=== PATIENT | male | born 1940 | race Caucasian/White ===

== ENCOUNTER 2017-03-29 09:36 | Emergency (ER) | payer OTHER ==
[~2017-03-29] VITALS: Ht 182.9 cm; Wt 93.0 kg
[~2017-03-29 09:36] MED LIST: DICL50 PO; GABA300C3 PO; PROS5TAB2 PO; SIMV20TA PO
[2017-03-29 09:39] VITALS: BP 141/70; PULSE 54; RESP 16; TEMP 97.6; O2SAT 96
[2017-03-29] MEDS ORDERED: WARF-23 PO (09:57)
[2017-03-29] MEDS ORDERED: OXYB5TAB10 PO (09:57)
[2017-03-29] MEDS ORDERED: SIMV20TA PO (09:57)
[2017-03-29] MEDS ORDERED: FINA5TAB2 PO (09:57)
[2017-03-29] MEDS ORDERED: METO50TA11 PO (09:57)
--- NOTE | 2017-03-29 10:07 | PD ---
HPI Chief Complaint: Fall Time Seen by Provider: 10:02 Travel History International Travel<30 days: No Contact w/Intl Traveler<30days: No Traveled to known affect area: No History of Present Illness HPI This 76-year-old male is brought after a fall. He was in his kitchen and his says he suddenly fell to the ground. He was wide awake when she first saw him. His glasses caused lacerations around his left thigh. He is having pain in his neck. He is on Coumadin because of atrial fibrillation. His says that he does fall fairly often. His says that his Coumadin level has been elevated recently and he was taken off them for several days last week. His does say that he falls quite often PFSH Past Medical History Hx Anticoagulant Therapy: Yes Arthritis: Yes Atrial Fibrillation: Yes Autoimmune Disease: No Anxiety: No Depression: No Heart Rhythm Problems: No Cancer: No Cardiovascular Problems: Yes (A. FIB. , HTN, CHOL) High Cholesterol: Yes Chest Pain: No Congestive Heart Failure: No Diabetes: No Diminished Hearing: No Endocrine: No Genitourinary: Yes (BPH) Immune Disorder: No Inguinal Hernia: Yes Musculoskeletal: Yes (BILATERAL ROTATOR CUFF REPAIR) Neurologic: No Psychiatric: No Reproductive: No Respiratory: No Influenza Vaccination: Yes ?: Not Past Surgical History Abdominal Surgery: Yes (APPY, LAURE. ING. HERNIA REP.) Appendectomy: Yes Cardiac Surgery: No Ear Surgery: No Endocrine Surgery: No Eye Surgery: No Genitourinary Surgery: No Gynecologic Surgery: No Joint Replacement: Yes (left hip) Oral Surgery: Yes (CHIN BONE REPAIR) Pacemaker: No Thoracic Surgery: No Other Surgery: Yes (HERNIA REPAIR) Social History Alcohol Use: No Tobacco Use: No Substance Use: No Allergies-Medications (Allergen,Severity, Reaction): Coded Allergies: No Known Allergies (Verified , 03/29/17) Reported Meds & Prescriptions Reported Meds & Active Scripts Active Metoprolol Succinate ER 24 HR (Metoprolol Succinate) 25 Mg Tab 25 Mg PO DAILY Reported Simvastatin 20 Mg Tab 20 Mg PO HS Finasteride 5 Mg Tab 5 Mg PO DAILY Do not crush. Ditropan (Oxybutynin Chloride) 5 Mg Tab 5 Mg PO Q12HR Metoprolol Succinate ER 24 HR (Metoprolol Succinate) 50 Mg Tab 50 Mg PO DAILY Warfarin 5 Mg Tab 5 Mg PO DAILY Review of Systems General / Constitutional: No: Fever, Chills Eyes: No: Diploplia, Blurred Vision HENT: No: Headaches Cardiovascular: No: Chest Pain or Discomfort, Palpitations Respiratory: No: Cough, Shortness of Breath Gastrointestinal: No: Vomiting Genitourinary: No: Urgency, Frequency Musculoskeletal: Positive: Myalgias, Pain Skin: No Rash, No Itching Neurologic: No: Change in Mentation Psychiatric: No: Anxiety Endocrine: No: Heat Intolerance, Cold Intolerance Physical Exam Narrative GENERAL: Well-developed male SKIN: Focused skin assessment warm/dry. HEAD: Atraumatic. Normocephalic. EYES: Pupils equal and round. No scleral icterus. No injection or drainage. There is a 4 cm laceration above the left eye. There is a superficial laceration below the eye and a small laceration on the left side of the nose. There is some swelling and tenderness of the nose ENT: No nasal bleeding or discharge. Mucous membranes pink and moist. NECK: Trachea midline. No JVD. CARDIOVASCULAR: Regular rate and rhythm. No murmur appreciated. RESPIRATORY: No accessory muscle use. Clear to auscultation. Breath sounds equal bilaterally. GASTROINTESTINAL: Abdomen soft, non-tender, nondistended. Hepatic and splenic margins not palpable. MUSCULOSKELETAL: No obvious deformities. No clubbing. No cyanosis. No edema. NEUROLOGICAL: Awake and alert. No obvious cranial nerve deficits. Motor grossly within normal limits. Normal speech. PSYCHIATRIC: Appropriate mood and affect; insight and judgment normal. Data Data Last Documented VS Vital Signs Date Time Temp Pulse Resp B/P Pulse Ox O2 Delivery O2 Flow Rate FiO2 03/29/17 11:00 57 18 162/90 97 03/29/17 09:39 97.6 Orders Electrocardiogram (03/29/17 10:02) Complete Blood Count With Diff (03/29/17 10:02) Basic Metabolic Panel (Bmp) (03/29/17 10:02) Prothrombin Time / Inr (Pt) (03/29/17 10:02) Act Partial Throm Time (Ptt) (03/29/17 10:02) Ct Brain W/O Iv Contrast(Rout) (03/29/17 10:02) Ct Cerv Spine W/O Contrast (03/29/17 10:02) Lidocai-Epi 1%-1:100,000 Inj (Xylocaine- (03/29/17 11:45) Labs Laboratory Tests Test 03/29/17 10:10 White Blood Count 6.5 TH/MM3 Red Blood Count 5.54 MIL/MM3 Hemoglobin 15.6 GM/DL Hematocrit 47.5 % Mean Corpuscular Volume 85.7 FL Mean Corpuscular Hemoglobin 28.0 PG Mean Corpuscular Hemoglobin 32.7 % Concent Red Cell Distribution Width 14.3 % Platelet Count 142 TH/MM3 Mean Platelet Volume 6.9 FL Neutrophils (%) (Auto) 73.7 % Lymphocytes (%) (Auto) 16.1 % Monocytes (%) (Auto) 7.1 % Eosinophils (%) (Auto) 1.8 % Basophils (%) (Auto) 1.3 % Neutrophils # (Auto) 4.8 TH/MM3 Lymphocytes # (Auto) 1.0 TH/MM3 Monocytes # (Auto) 0.5 TH/MM3 Eosinophils # (Auto) 0.1 TH/MM3 Basophils # (Auto) 0.1 TH/MM3 CBC Comment DIFF FINAL Differential Comment Prothrombin Time 22.1 SEC Prothromb Time International 1.9 RATIO Ratio Activated Partial 32.5 SEC Thromboplast Time Sodium Level 142 MEQ/L Potassium Level 4.8 MEQ/L Chloride Level 106 MEQ/L Carbon Dioxide Level 27.3 MEQ/L Anion Gap 9 MEQ/L Blood Urea Nitrogen 28 MG/DL Creatinine 1.40 MG/DL Estimat Glomerular Filtration 49 ML/MIN Rate Random Glucose 107 MG/DL Calcium Level 9.3 MG/DL MDM Medical Decision Making Medical Screen Exam Complete: Yes Emergency Medical Condition: Yes Medical Record Reviewed: Yes Differential Diagnosis Differential includes but injury, cervical spine fracture, electrolyte imbalance ,coagulopathy Narrative Course CT of the head is negative for injury. CT of the brain is negative. He has been observed on the monitor and his heart rate runs around 56. He should be on a lower dose of metoprolol as he has been falling and he is a bit bradycardic. I will prescribe 25 mg daily. To follow-up with his own medical doctor Diagnosis Primary Impression: Laceration of forehead Qualified Code: S01.81XA - Laceration of forehead, initial encounter Additional Impression: Cervical strain, acute Qualified Code: S16.1XXA - Cervical strain, acute, initial encounter Scripts Metoprolol Succinate ER 24 HR 25 Mg Tab25 Mg PO DAILY #30 TAB Ref 0 Prov:Laz Becker MD 03/29/17 Disposition: 01 DISCHARGE HOME Condition: Stable Laz Becker MD March 29, 2017 10:07
[2017-03-29 10:16] LABS: AUTOMATED NEUTROPHIL # 4.8 TH/MM3 (1.8-7.7); BASOPHIL # 0.1 TH/MM3 (0-0.2); BASOPHIL % 1.3 % (0.0-2.0); EOSINOPHIL # 0.1 TH/MM3 (0-0.4); EOSINOPHIL % 1.8 % (0.0-4.0); HEMATOCRIT 47.5 % (39.0-51.0); HEMO FLAGS DIFF FINAL; LYMPH % 16.1 % (9.0-44.0); MEAN CELL VOLUME 85.7 FL (80.0-100.0); MEAN CORPUSCULAR HGB CONC 32.7 % (32.0-36.0); MONO % 7.1 % (0.0-8.0); NEUT % 73.7 % (16.0-70.0); PLATELET COUNT 142 TH/MM3 (150-450); RED BLOOD COUNT 5.54 MIL/MM3 (4.50-5.90); RED CELL DISTRIBUTION WIDTH 14.3 % (11.6-17.2); WHITE BLOOD COUNT 6.5 TH/MM3 (4.0-11.0)
[2017-03-29 10:24] LABS: POTASSIUM 4.8 MEQ/L (3.5-5.1)
[2017-03-29 10:27] LABS: BICARBONATE 27.3 MEQ/L (21.0-32.0)
[2017-03-29 10:28] LABS: APTT (PATIENT) 32.5 SEC (24.3-30.1); INTERNATIONAL NORMALIZED RATIO 1.9 RATIO; PROTHROMBIN TIME - PATIENT 22.1 SEC (9.8-11.6)
[2017-03-29 11:00] VITALS: BP 162/90; PULSE 57; RESP 18; O2SAT 97
--- NOTE | 2017-03-29 11:28 | RADHPO ---
EXAM DATE/TIME: 03/29/2017 10:40 [facility] COMPARISON: No previous studies available for comparison. INDICATIONS : Trauma. Fall. Left forehead laceration. RADIATION DOSE: 67.40 CTDIvol (mGy) MEDICAL HISTORY : Cardiovascular disease. Hypertension. SURGICAL HISTORY : Appendectomy. ENCOUNTER: Initial ACUITY: 1 day PAIN SCALE: 4/10 LOCATION: Left frontal TECHNIQUE: Multiple contiguous axial images were obtained of the head. Using automated exposure control and adj ustment of the mA and/or kV according to patient size, radiation dose was kept as low as reasonably a chievable to obtain optimal diagnostic quality images. FINDINGS: CEREBRUM: The ventricles are normal for age. No evidence of midline shift, mass lesion, hemorrhage or acute in farction. No extra-axial fluid collections are seen. POSTERIOR FOSSA: The cerebellum and brainstem are intact. The 4th ventricle is midline. The cerebellopontine angle i s unremarkable. EXTRACRANIAL: The visualized portion of the orbits is intact. SKULL: The calvaria is intact. No evidence of skull fracture. CONCLUSION: 1. No acute findings intracranial. Small left frontal scalp hematoma. Ralph Howard MD on March 29, 2017 at 11:24 Board Certified Radiologist. This report was verified electronically.
--- NOTE | 2017-03-29 11:32 | RADHPO ---
EXAM DATE/TIME: 03/29/2017 10:40 [facility] COMPARISON: No previous studies available for comparison. INDICATIONS : Trauma. Fall. Left forehead laceration. RADIATION DOSE: 26.64 CTDIvol (mGy) MEDICAL HISTORY : Cardiovascular disease. Hypertension. SURGICAL HISTORY : Appendectomy. ENCOUNTER: Initial ACUITY: 1 day PAIN SCALE: 2/10 LOCATION: neck TECHNIQUE: Volumetric scanning of the cervical spine was performed. Multiplanar reconstructions in the sagittal, coronal and oblique axial planes were performed. Using automated exposure control and adjustment o f the mA and/or kV according to patient size, radiation dose was kept as low as reasonably achievable to obtain optimal diagnostic quality images. FINDINGS: There is no acute fracture or spondylolisthesis. There is no prevertebral soft tissue swelling. Moder ate degenerative disc disease present at C5-6-7 with mild canal, lateral recess and foraminal stenosi s bilaterally. CONCLUSION: 1. No acute findings. Moderate degenerative change in the lower cervical spine. Ralph Howard MD on March 29, 2017 at 11:26 Board Certified Radiologist. This report was verified electronically.
[2017-03-29] MEDS ORDERED: LIDOCAINE 1%/EPINEPHrine 1:100,000 SOLN 20 ML VIAL INFIL ONE (11:45)
[2017-03-29] MEDS ORDERED: METO25TA6 PO (11:46)
--- NOTE | 2017-03-29 12:29 | PD ---
Physical Exam Time Seen by Provider: 12:00 Narrative I was asked by Dr. Juárez to perform a laceration repair in this patient. Please see his note for further details. Data Data Last Documented VS Vital Signs Date Time Temp Pulse Resp B/P Pulse Ox O2 Delivery O2 Flow Rate FiO2 03/29/17 11:00 57 18 162/90 97 03/29/17 09:39 97.6 Orders Electrocardiogram (03/29/17 10:02) Complete Blood Count With Diff (03/29/17 10:02) Basic Metabolic Panel (Bmp) (03/29/17 10:02) Prothrombin Time / Inr (Pt) (03/29/17 10:02) Act Partial Throm Time (Ptt) (03/29/17 10:02) Ct Brain W/O Iv Contrast(Rout) (03/29/17 10:02) Ct Cerv Spine W/O Contrast (03/29/17 10:02) Lidocai-Epi 1%-1:100,000 Inj (Xylocaine- (03/29/17 11:45) Labs Laboratory Tests Test 03/29/17 10:10 White Blood Count 6.5 TH/MM3 Red Blood Count 5.54 MIL/MM3 Hemoglobin 15.6 GM/DL Hematocrit 47.5 % Mean Corpuscular Volume 85.7 FL Mean Corpuscular Hemoglobin 28.0 PG Mean Corpuscular Hemoglobin 32.7 % Concent Red Cell Distribution Width 14.3 % Platelet Count 142 TH/MM3 Mean Platelet Volume 6.9 FL Neutrophils (%) (Auto) 73.7 % Lymphocytes (%) (Auto) 16.1 % Monocytes (%) (Auto) 7.1 % Eosinophils (%) (Auto) 1.8 % Basophils (%) (Auto) 1.3 % Neutrophils # (Auto) 4.8 TH/MM3 Lymphocytes # (Auto) 1.0 TH/MM3 Monocytes # (Auto) 0.5 TH/MM3 Eosinophils # (Auto) 0.1 TH/MM3 Basophils # (Auto) 0.1 TH/MM3 CBC Comment DIFF FINAL Differential Comment Prothrombin Time 22.1 SEC Prothromb Time International 1.9 RATIO Ratio Activated Partial 32.5 SEC Thromboplast Time Sodium Level 142 MEQ/L Potassium Level 4.8 MEQ/L Chloride Level 106 MEQ/L Carbon Dioxide Level 27.3 MEQ/L Anion Gap 9 MEQ/L Blood Urea Nitrogen 28 MG/DL Creatinine 1.40 MG/DL Estimat Glomerular Filtration 49 ML/MIN Rate Random Glucose 107 MG/DL Calcium Level 9.3 MG/DL [facility] Medical Record Reviewed: Yes Supervised Visit with EMPERATRIZ: Yes Procedures Procedure Narrative LACERATION LOCATION: Left eyebrow LENGTH: 4 cm NUMBER OF STITCHES/JUVE: 7 simple interrupted REPAIR: The area of the laceration was prepped with Betadine and sterilely draped. The laceration was infiltrated with 1% lidocaine with epinephrine. The wound was copiously irrigated and explored without evidence of foreign body , tendon injury or neurovascular injury. The wound was closed using 6-0 Prolene. This was a single layer repair. A sterile dressing was applied. The patient was advised to keep the dressing clean and dry. Patient tolerated the procedure well. Diagnosis Primary Impression: Laceration of forehead Qualified Code: S01.81XA - Laceration of forehead, initial encounter Additional Impression: Cervical strain, acute Qualified Code: S16.1XXA - Cervical strain, acute, initial encounter Referrals: Cynthia Knox MD (PCP) 3 days Patient Instructions: General Instructions, Head Injury (ED), Facial Laceration (ED), Neck Pain (ED) Departure Forms: Tests/Procedures Scripts Metoprolol Succinate ER 24 HR 25 Mg Tab25 Mg PO DAILY #30 TAB Ref 0 Prov:Laz Becker MD 03/29/17 Disposition: 01 DISCHARGE HOME Condition: Stable Ellie Goins March 29, 2017 12:29
[2017-03-29 12:52] VITALS: BP 149/81
--- NOTE | 2017-03-29 15:21 | EKG ---
Date Performed: 03/29/2017 Time Performed: 10:04:14 PTAGE: 76 years EKG: Sinus bradycardia with PVC(s) Left anterior fascicular block Left ventricular hypertrophy L ateral T wave changes are probably due to ventricular hypertrophy Abnormal ECG COMPARED TO PRIOR ELEC TROCARDIOGRAM, Premature ventricular contractions are present. PREVIOUS TRACING : 06/05/2011 13.48 DOCTOR: Tunde Troy Interpretating Date/Time 03/29/2017 15:20:37
== END 2017-03-29 12:53 | disposition home or self-care (01) ==
LOC: PHED 09:36
DX: S01.81XA Laceration without foreign body of other part of head, initial encounter (principal); S16.1XXA Strain of muscle, fascia and tendon at neck level, initial encounter; I48.91 Unspecified atrial fibrillation; M19.90 Unspecified osteoarthritis, unspecified site; Z79.01 Long term (current) use of anticoagulants; Z79.899 Other long term (current) drug therapy; W18.30XA Fall on same level, unspecified, initial encounter; Z91.81 History of falling; Y92.000 Kitchen of unspecified non-institutional (private) residence as the place of occurrence of the external cause
CPT/HCPCS: 12013; 70450; 72125; 80048; 85025; 85610; 85730; 93005

== ENCOUNTER 2017-06-25 12:20 | Emergency (ER) | payer OTHER ==
[~2017-06-25] VITALS: Ht 182.9 cm; Wt 95.0 kg
[~2017-06-25 12:20] MED LIST changes: -DICL50 PO; +FINA5TAB2 PO; -GABA300C3 PO; +METO25TA6 PO; +METO50TA11 PO; +OXYB5TAB10 PO; -PROS5TAB2 PO; +WARF-23 PO
[2017-06-25] MEDS ORDERED: SODIUM CHLORIDE 0.9% FLUSH 10 ML FLUSH IVF PRN (12:30)
[2017-06-25 12:37] VITALS: BP 148/111; PULSE 73; RESP 18; TEMP 97.7; O2SAT 98
--- NOTE | 2017-06-25 12:38 | PD ---
HPI Chief Complaint: syncope Time Seen by Provider: 12:32 Travel History International Travel<30 days: No Contact w/Intl Traveler<30days: No History of Present Illness HPI Patient comes emergency Department after a reported witnessed syncope after finishing swimming while at the gym today. Patient denies any headache, chest pain, shortness of breath, lightheadedness, dizziness, loss or change in bowel or bladder, or change in vision prior to or post-syncopal episode. Patient states he was talking with his and when the next thing he new he woke up on the ground with paramedics looking at him. Patient has a history of this similar in March which his blood pressure medicines adjusted at that time. Patient sees Dr. Marin and is supposed to have a loop recorder placed this Sunday. Patient denies anything making it better or worse. Patient reports history of unknown arrhythmia. Patient's reports that she noticed her house about to collapse and she managed to catch him keep from hitting his head , calling for help, and reports patient was snoring. PFSH Past Medical History Hx Anticoagulant Therapy: Yes Arthritis: Yes Atrial Fibrillation: Yes Autoimmune Disease: No Anxiety: No Depression: No Heart Rhythm Problems: No Cancer: No Cardiovascular Problems: Yes (A. FIB. , HTN, CHOL) High Cholesterol: Yes Chest Pain: No Congestive Heart Failure: No Diabetes: No Diminished Hearing: No Endocrine: No Genitourinary: Yes (BPH) Immune Disorder: No Inguinal Hernia: Yes Musculoskeletal: Yes (BILATERAL ROTATOR CUFF REPAIR) Neurologic: No Psychiatric: No Reproductive: No Respiratory: No Past Surgical History Abdominal Surgery: Yes (APPY, LAURE. ING. HERNIA REP.) Appendectomy: Yes Cardiac Surgery: No Ear Surgery: No Endocrine Surgery: No Eye Surgery: No Genitourinary Surgery: No Gynecologic Surgery: No Joint Replacement: Yes (left hip) Oral Surgery: Yes (CHIN BONE REPAIR) Pacemaker: No Thoracic Surgery: No Other Surgery: Yes (HERNIA REPAIR) Social History Alcohol Use: No Tobacco Use: No Substance Use: No Allergies-Medications (Allergen,Severity, Reaction): Coded Allergies: No Known Allergies (Verified , 06/25/17) Reported Meds & Prescriptions Reported Meds & Active Scripts Active Metoprolol Succinate ER 24 HR (Metoprolol Succinate) 25 Mg Tab 25 Mg PO DAILY Reported Simvastatin 20 Mg Tab 20 Mg PO HS Finasteride 5 Mg Tab 5 Mg PO DAILY Do not crush. Ditropan (Oxybutynin Chloride) 5 Mg Tab 5 Mg PO Q12HR Warfarin 5 Mg Tab 5 Mg PO DAILY Review of Systems Except as stated in HPI: all other systems reviewed are Neg Physical Exam Narrative GENERAL: Well-developed, overly nourished, in no acute distress, and non-ill appearing. SKIN: Focused skin assessment warm and dry. HEAD: Atraumatic. Normocephalic. EYES: Pupils equal and round. EOMI. No scleral icterus. No injection or drainage. ENT: No nasal bleeding or discharge. Mucous membranes pink and moist. NECK: Trachea midline. No JVD. Supple. No nuclear rigidity. CARDIOVASCULAR: Regular rate and rhythm. No murmur appreciated. RESPIRATORY: No accessory muscle use. No respiratory distress. Clear to auscultation. Breath sounds equal bilaterally. MUSCULOSKELETAL: No obvious deformities. No clubbing. No cyanosis. No edema. Full range of motion. NEUROLOGICAL: Awake and alert. No obvious cranial nerve deficits. Motor grossly within normal limits. Normal speech. PSYCHIATRIC: Appropriate mood and affect; insight and judgment normal. Data Data Last Documented VS Vital Signs Date Time Temp Pulse Resp B/P Pulse Ox O2 Delivery O2 Flow Rate FiO2 06/25/17 14:34 76 20 158/100 97 Room Air 06/25/17 12:45 2 06/25/17 12:37 97.7 Orders Electrocardiogram (06/25/17 12:25) Basic Metabolic Panel (Bmp) (06/25/17 12:25) Complete Blood Count With Diff (06/25/17 12:25) Magnesium (Mg) (06/25/17 12:25) Ckmb (Isoenzyme) Profile (06/25/17 12:25) Troponin I (06/25/17 12:25) Act Partial Throm Time (Ptt) (06/25/17 12:25) Prothrombin Time / Inr (Pt) (06/25/17 12:25) Chest, Single Ap (06/25/17 12:25) Ct Brain W/O Iv Contrast(Rout) (06/25/17 12:25) Ecg Monitoring (06/25/17 12:25) Iv Access Insert/Monitor (06/25/17 12:25) Oximetry (06/25/17 12:25) Sodium Chloride 0.9% Flush (Ns Flush) (06/25/17 12:30) Orthostatic Vital Signs (06/25/17 12:25) Labs Laboratory Tests Test 06/25/17 12:20 White Blood Count 6.2 TH/MM3 Red Blood Count 5.41 MIL/MM3 Hemoglobin 15.7 GM/DL Hematocrit 46.4 % Mean Corpuscular Volume 85.6 FL Mean Corpuscular Hemoglobin 29.0 PG Mean Corpuscular Hemoglobin 33.8 % Concent Red Cell Distribution Width 14.8 % Platelet Count 130 TH/MM3 Mean Platelet Volume 7.8 FL Neutrophils (%) (Auto) 68.5 % Lymphocytes (%) (Auto) 21.7 % Monocytes (%) (Auto) 8.2 % Eosinophils (%) (Auto) 1.3 % Basophils (%) (Auto) 0.3 % Neutrophils # (Auto) 4.3 TH/MM3 Lymphocytes # (Auto) 1.4 TH/MM3 Monocytes # (Auto) 0.5 TH/MM3 Eosinophils # (Auto) 0.1 TH/MM3 Basophils # (Auto) 0.0 TH/MM3 CBC Comment DIFF FINAL Differential Comment Prothrombin Time 15.3 SEC Prothromb Time International 1.4 RATIO Ratio Activated Partial 27.8 SEC Thromboplast Time Sodium Level 141 MEQ/L Potassium Level 4.8 MEQ/L Chloride Level 109 MEQ/L Carbon Dioxide Level 21.5 MEQ/L Anion Gap 11 MEQ/L Blood Urea Nitrogen 23 MG/DL Creatinine 1.33 MG/DL Estimat Glomerular Filtration 52 ML/MIN Rate Random Glucose 114 MG/DL Calcium Level 9.0 MG/DL Magnesium Level 2.4 MG/DL Total Creatine Kinase 67 U/L Troponin I 0.04 NG/ML [facility] Medical Decision Making Medical Screen Exam Complete: Yes Emergency Medical Condition: Yes Interpretation(s) EKG reviewed by Dr. Rodrigues shows atrial fibrillation with ventricular is 77. No STEMI. CT of the head read by the radiologist shows: Mild symmetric ventriculomegaly is unchanged from most recent previous exam. No acute findings Chest x-ray read by Dr. Rodrigues shows no acute findings. Radiologist to over read. Differential Diagnosis Arrhythmia, electrolyte abnormality, orthostatic hypotension, CVA, volume depletion, other Narrative Course Patient presented with a syncopal event. The patient denied any symptoms of chest pain, SOB/difficulty breathing, palpitations or skipped heartbeats. The patient denied and headache. The patient denied any bloody or tarry stools. There was no evidence to suggest neurologic or cardiac etiology or GIB. There was no evidence clinically to suspect acute pulmonary embolism, cardiac dysrhythmia, or intracranial event or bleed. EKG and laboratory evaluation revealed no significant findings. The patient may be safely discharged and follow up as an outpatient. The patient was instructed to return if events occur more frequently or associated with chest pain, SOB/difficulty breathing, palpitations or skipped heartbeats or headache or blood in stool or tarry in stools. Patient in no obvious distress upon re-evaluation. All pertinent laboratory/ Radiology result(s) discussed with patient/family. Discussed patient with Dr. Rodrigues prior to discharge, who is in agreement with plan of care and disposition. Any questions/concerns in reference to patient diagnosis/condition discussed and clarified prior to patient's discharge. Reinforced sheer importance of close follow up with patient's primary physician or primary care clinic, it program engagement director, and neurologist. Instructed patient to return to ED immediately, if symptoms return/worsen. Pt showed understanding of above instructions. Further instructions and recommendations were detailed in discharge paperwork. Pt ambulated without difficulty out of ED at discharge. Physician Communication Physician Communication [id number] Gonzalez patient's it program engagement director who recommends outpatient follow-up with scheduled appointment on Sunday. No driving. [id number] Irwin, neurology on-call, recommends outpatient follow-up after his loop recorder placed by his it program engagement director. Diagnosis Primary Impression: Syncope Qualified Code: R55 - Syncope, unspecified syncope type Referrals: Lulu Irwin MD Patient Instructions: General Instructions, Syncope (ED) Additional Instructions: Follow-up with your it program engagement director this week as scheduled. Do not drive until cleared by your it program engagement director and neurologist. Follow up with neurology next week. Follow up with your primary care doctor this week. Return to the emergency department if symptoms get worse. Disposition: 01 DISCHARGE HOME Condition: Stable Amauri Marquez Jun 25, 2017 12:38
[2017-06-25 12:45] VITALS: BP_SYST 138; BP_SYST 149; BP_SYST 172; BP_DIAS 105; BP_DIAS 69; BP_DIAS 72; O2SAT 98
[2017-06-25 13:07] LABS: AUTOMATED NEUTROPHIL # 4.3 TH/MM3 (1.8-7.7); BASOPHIL % 0.3 % (0.0-2.0); EOSINOPHIL # 0.1 TH/MM3 (0-0.4); EOSINOPHIL % 1.3 % (0.0-4.0); HEMATOCRIT 46.4 % (39.0-51.0); HEMO FLAGS DIFF FINAL; LYMPH % 21.7 % (9.0-44.0); LYMPHOCYTE # 1.4 TH/MM3 (1.0-4.8); MEAN CELL VOLUME 85.6 FL (80.0-100.0); MEAN CORPUSCULAR HGB CONC 33.8 % (32.0-36.0); MONO % 8.2 % (0.0-8.0); NEUT % 68.5 % (16.0-70.0); PLATELET COUNT 130 TH/MM3 (150-450); RED BLOOD COUNT 5.41 MIL/MM3 (4.50-5.90); RED CELL DISTRIBUTION WIDTH 14.8 % (11.6-17.2); WHITE BLOOD COUNT 6.2 TH/MM3 (4.0-11.0)
[2017-06-25 13:22] LABS: APTT (PATIENT) 27.8 SEC (24.3-30.1); INTERNATIONAL NORMALIZED RATIO 1.4 RATIO; PROTHROMBIN TIME - PATIENT 15.3 SEC (9.8-11.6)
[2017-06-25 13:30] LABS: BICARBONATE 21.5 MEQ/L (21.0-32.0); MAGNESIUM 2.4 MG/DL (1.5-2.5); POTASSIUM 4.8 MEQ/L (3.5-5.1)
--- NOTE | 2017-06-25 13:39 | RADRPT ---
EXAM DATE/TIME: 06/25/2017 13:11 [facility] COMPARISON: CT BRAIN W/O CONTRAST, March 29, 2017, 10:40. INDICATIONS : Syncope. RADIATION DOSE: 37.35 CTDIvol (mGy) MEDICAL HISTORY : Cardiovascular disease. Hypertension. SURGICAL HISTORY : None. ENCOUNTER: Initial ACUITY: 1 day PAIN SCALE: 0/10 LOCATION: Bilateral cranial TECHNIQUE: Multiple contiguous axial images were obtained of the head. Using automated exposure control and adj ustment of the mA and/or kV according to patient size, radiation dose was kept as low as reasonably a chievable to obtain optimal diagnostic quality images. DICOM format image data is available electro nically for review and comparison. FINDINGS: There is stable mild symmetric ventriculomegaly. There is stable moderate hypodensity in the perivent ricular white matter. There is no evidence of intracranial mass or hemorrhage. There is nothing to mello ggest acute infarction. Extracranial structures are grossly benign and intact. CONCLUSION: Mild symmetric ventriculomegaly is unchanged from most recent previous exam. No acute findings Josiah Velasquez MD on June 25, 2017 at 13:34 Board Certified Radiologist. This report was verified electronically.
[2017-06-25 14:34] VITALS: BP 158/100; PULSE 76; RESP 20; O2SAT 97
--- NOTE | 2017-06-25 14:43 | RADRPT ---
EXAM DATE/TIME: 06/25/2017 12:50 [facility] COMPARISON: No previous studies available for comparison. INDICATIONS : Patient is short of breath. MEDICAL HISTORY : Cardiovascular disease. Hypertension. SURGICAL HISTORY : Appendectomy. ENCOUNTER: Initial ACUITY: 1 day PAIN SCORE: 0/10 LOCATION: Bilateral chest FINDINGS: A single view of the chest demonstrates the lungs to be symmetrically aerated without evidence of mas s, infiltrate or effusion. The cardiomediastinal contours are unremarkable. Osseous structures are intact. CONCLUSION: No acute disease. Bernardino Sigala MD FACR on June 25, 2017 at 14:41 Board Certified Radiologist. This report was verified electronically.
--- NOTE | 2017-06-26 15:52 | EKG ---
Date Performed: 06/25/2017 Time Performed: 12:28:40 PTAGE: 76 years EKG: ATRIAL FIBRILLATION MARKED LEFT AXIS DEVIATION LEFT BUNDLE BRANCH BLOCK ABNORMAL ECG PREVIOUS TRACING : 03/29/2017 10.04 DOCTOR: Eliceo Hernandez Interpretating Date/Time 06/26/2017 15:45:35
== END 2017-06-25 14:58 | disposition home or self-care (01) ==
LOC: NEPE 12:20
DX: R55 Syncope and collapse (principal); G93.89 Other specified disorders of brain; I48.91 Unspecified atrial fibrillation; I44.7 Left bundle-branch block, unspecified; R94.31 Abnormal electrocardiogram [ECG] [EKG]; I10 Essential (primary) hypertension; E78.00 Pure hypercholesterolemia, unspecified; N40.0 Benign prostatic hyperplasia without lower urinary tract symptoms; Z79.01 Long term (current) use of anticoagulants
CPT/HCPCS: 70450; 71010; 80048; 82550; 83735; 84484; 85025; 85610; 85730; 93005; 99285

== ENCOUNTER 2017-06-29 07:57 | Day surgery (SDC) | payer OTHER ==
[~2017-06-29 07:57] MED LIST changes: -METO50TA11 PO
[2017-06-29] MEDS ORDERED: MIDAZOLAM HCL 2 MG/2 ML VIAL ONE (08:40)
[2017-06-29] MEDS ORDERED: NS 1000 ML IV SCH (08:45)
[2017-06-29] MEDS ORDERED: POVIDONE IODINE 5% (ANTISEPSIS KIT) 4 APPLICATIONS EACH NARE SCH (08:45)
[2017-06-29] MEDS ORDERED: MUPIROCIN 2% OINT 1 APPLIC/GM SYR NASAL SCH (08:45)
[2017-06-29] MEDS ORDERED: ceFAZolin 2 GM PREMIX 50 ML IV SCH (08:45)
[2017-06-29] MEDS ORDERED: CHLORHEXIDINE GLUCONATE 2 % 1 PACK (2 CLOTHS) TOPICAL SCH (08:45)
--- NOTE | 2017-06-29 10:14 | MR ---
cc: EDUARD LAWSON MD DATE 06/29/2017 PERFORMING PHYSICIAN Eduard Lawson MD PROCEDURES PERFORMED 1. 15 minutes moderate IV sedation. 2. Loop recorder insertion. DESCRIPTION OF PROCEDURE After informed consent was obtained, 2 mg of Versed and 25 mcg of fentanyl was given for IV sedation. Next, a [employer] LINQ loop recorder was inserted subcutaneously in the left chest. The patient tolerated the procedure well without any apparent complications. Tachybrady pause atrial fibrillation detection was enabled, however, the patient was in atrial fibrillation at the time of the insertion which by my chart was a new formal diagnosis for the patient. He was on warfarin, however, this was held over the last several days. The patient tolerated the procedure well without any apparent complications. The serial number was [id number]. The initial R-wave was 0.25 mV. MD HAIDER Bettencourt/LUCERO /8:57 AM /10:04 AM
== END 2017-06-29 10:08 | disposition home or self-care (01) ==
LOC: HDOC 07:57 → HDIC 07:58 → HDOC 10:08
PROVIDERS: ATTEND Nuclear Medicine Nuclear Cardiology
DX: R55 Syncope and collapse (principal); I49.1 Atrial premature depolarization; I13.10 Hypertensive heart and chronic kidney disease without heart failure, with stage 1 through stage 4 chronic kidney disease, or unspecified chronic kidney disease; N18.3 Chronic kidney disease, stage 3 (moderate); E78.5 Hyperlipidemia, unspecified; D69.6 Thrombocytopenia, unspecified; I70.0 Atherosclerosis of aorta; Z87.891 Personal history of nicotine dependence; Z79.01 Long term (current) use of anticoagulants; Z79.899 Other long term (current) drug therapy
CPT/HCPCS: 33282; C1764; J0690; J2250; J3010

== ENCOUNTER 2017-12-31 12:18 | Emergency (ER) | payer OTHER ==
[~2017-12-31] VITALS: Ht 182.9 cm; Wt 98.0 kg
[~2017-12-31 12:18] MED LIST changes: -FINA5TAB2 PO; +METO1TAB42 PO; -METO25TA6 PO; -OXYB5TAB10 PO; +OXYB5TAB8 PO
[2017-12-31 12:22] VITALS: BP 114/68; PULSE 75; RESP 16; TEMP 98; O2SAT 94
[2017-12-31] MEDS ORDERED: WARF-20 PO (12:41)
[2017-12-31 12:45] VITALS: O2SAT 93
[2017-12-31] MEDS ORDERED: SODIUM CHLORIDE 0.9% FLUSH 10 ML FLUSH IV FLUSH PRN (12:45)
[2017-12-31 13:05] LABS: AUTOMATED NEUTROPHIL # 5.6 TH/MM3 (1.8-7.7); BASOPHIL % 0.6 % (0.0-2.0); EOSINOPHIL # 0.1 TH/MM3 (0-0.4); EOSINOPHIL % 1.2 % (0.0-4.0); LYMPH % 8.9 % (9.0-44.0); LYMPHOCYTE # 0.6 TH/MM3 (1.0-4.8); MEAN CELL VOLUME 84.1 FL (80.0-100.0); MEAN CORPUSCULAR HEMOGLOBIN 26.9 PG (27.0-34.0); MEAN PLATELET VOLUME 7.4 FL (7.0-11.0); MONO % 8.9 % (0.0-8.0); MONOCYTE # 0.6 TH/MM3 (0-0.9); NEUT % 80.4 % (16.0-70.0); PLATELET COUNT 132 TH/MM3 (150-450); RED BLOOD COUNT 5.59 MIL/MM3 (4.50-5.90); RED CELL DISTRIBUTION WIDTH 14.9 % (11.6-17.2); WHITE BLOOD COUNT 6.9 TH/MM3 (4.0-11.0)
--- NOTE | 2017-12-31 13:25 | PD ---
HPI . MENTAL STATUS Chief Complaint: Altered Mental Status Time Seen by Provider: 12:34 Travel History International Travel<30 days: No Contact w/Intl Traveler<30days: No Traveled to known affect area: No History of Present Illness HPI This patient brought in by squad with a chief complaint of altered mental status. She states that she dropped him off this morning to play horse shoes with his friends. When she went to pick him up, he just stood there looking at her as if he did not understand that she wanted him to get into the car. The states that it took her and his friend several minutes to get him to get into the car. She states he now seems normal. She reports one previous similar episode in the summertime. He was subsequently evaluated by both a neurologist and a [employer] and the etiology of the symptoms was not determined. However, he was told not to drive. The symptoms were very brief and have now completely resolved. There were no noted modifying factors. PFSH Past Medical History Hx Anticoagulant Therapy: Yes (WAS ON CUMIDIN ) Arthritis: Yes Atrial Fibrillation: Yes Autoimmune Disease: No Anxiety: No Depression: No Heart Rhythm Problems: No Cancer: No Cardiovascular Problems: Yes (A. FIB. , HTN, CHOL) High Cholesterol: Yes Chest Pain: No Congestive Heart Failure: No Diabetes: No Diminished Hearing: No Endocrine: No Genitourinary: Yes (BPH) Hypertension: Yes Immune Disorder: No Inguinal Hernia: Yes Musculoskeletal: Yes (BILATERAL ROTATOR CUFF REPAIR) Neurologic: No Psychiatric: No Reproductive: No Respiratory: Yes (COPD) Tetanus Vaccination: Unknown Influenza Vaccination: Yes ?: Not Past Surgical History Abdominal Surgery: Yes (APPY, LAURE. ING. HERNIA REP.) Appendectomy: Yes Cardiac Surgery: Yes (Loop recorder) Ear Surgery: No Endocrine Surgery: No Eye Surgery: No Genitourinary Surgery: No Gynecologic Surgery: No Joint Replacement: Yes (left hip) Oral Surgery: Yes (CHIN BONE REPAIR) Pacemaker: No Thoracic Surgery: No Other Surgery: Yes (HERNIA REPAIR) Social History Alcohol Use: No Tobacco Use: No Substance Use: No Allergies-Medications (Allergen,Severity, Reaction): Coded Allergies: No Known Allergies (Verified Adverse Reaction, Unknown, 12/31/17) Reported Meds & Prescriptions Reported Meds & Active Scripts Active Metoprolol Succinate ER 24 HR (Metoprolol Succinate) 25 Mg Tab 25 Mg PO DAILY Reported Warfarin 4 Mg Tab 4 Mg PO DAILY Simvastatin 20 Mg Tab 20 Mg PO HS Ditropan (Oxybutynin Chloride) 5 Mg Tab 5 Mg PO Q12HR Review of Systems Except as stated in HPI: all other systems reviewed are Neg Physical Exam Narrative GENERAL: Awake and alert and fully oriented at this time. SKIN: warm/dry. Good color and turgor. HEAD: Normocephalic. Atraumatic. EYES: Pupils equal and round. No scleral icterus. No injection or drainage. ENT: No nasal bleeding or discharge. Mucous membranes pink and moist. NECK: Trachea midline. Full range of motion without pain.. CARDIOVASCULAR: Regular rate and rhythm. Heart sounds normal. RESPIRATORY: No accessory muscle use. Clear to auscultation. Breath sounds equal bilaterally. GASTROINTESTINAL: Abdomen soft. Nontender. Bowel sounds present. Nondistended. MUSCULOSKELETAL: No obvious deformities. NEUROLOGICAL: Awake and alert. No obvious cranial nerve deficits. Motor grossly within normal limits. Normal speech. [id number] exam is intact. Pronator drift is negative. PSYCHIATRIC: Appropriate mood and affect; insight and judgment normal. Data Data Last Documented VS Vital Signs Date Time Temp Pulse Resp B/P (MAP) Pulse Ox O2 Delivery O2 Flow Rate FiO2 12/31/17 12:45 93 12/31/17 12:22 98.0 75 16 114/68 (83) Orders Orders Electrocardiogram (12/31/17 12:43) Basic Metabolic Panel (Bmp) (12/31/17 12:43) Complete Blood Count With Diff (12/31/17 12:43) Urinalysis - C+S If Indicated (12/31/17 12:43) Ct Brain W/O Iv Contrast(Rout) (12/31/17 12:43) Ecg Monitoring (12/31/17 12:43) Iv Access Insert/Monitor (12/31/17 12:43) Oximetry (12/31/17 12:43) Sodium Chloride 0.9% Flush (Ns Flush) (12/31/17 12:45) Cath For Specimen (12/31/17 14:05) Labs Laboratory Tests Test 12/31/17 12:48 12/31/17 13:22 12/31/17 14:24 White Blood Count 6.9 TH/MM3 Red Blood Count 5.59 MIL/MM3 Hemoglobin 15.0 GM/DL Hematocrit 47.0 % Mean Corpuscular Volume 84.1 FL Mean Corpuscular Hemoglobin 26.9 PG Mean Corpuscular Hemoglobin Concent 32.0 % Red Cell Distribution Width 14.9 % Platelet Count 132 TH/MM3 Mean Platelet Volume 7.4 FL Neutrophils (%) (Auto) 80.4 % Lymphocytes (%) (Auto) 8.9 % Monocytes (%) (Auto) 8.9 % Eosinophils (%) (Auto) 1.2 % Basophils (%) (Auto) 0.6 % Neutrophils # (Auto) 5.6 TH/MM3 Lymphocytes # (Auto) 0.6 TH/MM3 Monocytes # (Auto) 0.6 TH/MM3 Eosinophils # (Auto) 0.1 TH/MM3 Basophils # (Auto) 0.0 TH/MM3 CBC Comment DIFF FINAL Differential Comment Blood Urea Nitrogen 30 MG/DL Creatinine 1.50 MG/DL Random Glucose 92 MG/DL Calcium Level 9.1 MG/DL Sodium Level 135 MEQ/L Potassium Level 4.9 MEQ/L Chloride Level 103 MEQ/L Carbon Dioxide Level 25.1 MEQ/L Anion Gap 7 MEQ/L Estimat Glomerular Filtration Rate 45 ML/MIN Urine Collection Type CLEAN CATCH Urine Color YELLOW Urine Turbidity SLIGHT Urine pH 6.0 Urine Specific [place] 1.020 Urine Protein TRACE mg/dL Urine Glucose (UA) NEG mg/dL Urine Ketones TRACE mg/dL Urine Occult Blood MOD Urine Nitrite NEG Urine Bilirubin NEG Urine Leukocyte Esterase NEG Urine RBC 4-9 /hpf Urine WBC 0-2 /hpf Urine Squamous Epithelial Cells 0-5 /hpf Urine Amorphous Sediment FEW Microscopic Urinalysis Comment CULT NOT INDICATED Urine Collection Time 1424 MDM Medical Decision Making Medical Screen Exam Complete: Yes Emergency Medical Condition: Yes Medical Record Reviewed: Yes (patient was seen here in June after a syncopal episode which occurred after swimming. His evaluation was negative and he was discharged home.) Interpretation(s) EKG shows an atrial fibrillation rhythm with a controlled ventricular response of 80. No acute ischemic changes noted. Differential Diagnosis Differential diagnosis of altered mental status includes but is not limited to infection, electrolyte abnormality, neurological event, intoxication Narrative Course This patient presents with a brief episode of altered mental status. He has now returned to normal. CBC Diagram 12/31/17 12:48 BMP Diagram 12/31/17 13:22 Calcium Level 9.1 This BUN and creatinine is mildly elevated from previous. I will encourage the patient to drink more fluids. UA is negative for infection. Last Impressions Head CT 12/31/17 1243 Impressions: Service Date/Time: Sunday, December 31, 2017 13:40 - CONCLUSION: 1. No acute intracranial abnormality identified. 2. Stable compared to a previous study dated 06/25/17. Carlo Sigala MD The history, exam, diagnostic testing, and current condition do not suggest any significant pathology to warrant further testing, continued ED treatment, admission, or surgical evaluation at this point. No EMC was found. The patient 's condition is stable and appropriate for discharge. Diagnosis Primary Impression: Altered mental status Qualified Codes: R40.4 - Transient alteration of awareness Additional Impression: Dehydration Patient Instructions: Dehydration (DC), General Instructions Additional Instructions: Increase fluid intake Disposition: 01 DISCHARGE HOME Condition: Stable Radha Riojas MD Dec 31, 2017 13:25
[2017-12-31 13:38] LABS: CALCIUM 9.1 MG/DL (8.5-10.1)
[2017-12-31 13:39] LABS: BICARBONATE 25.1 MEQ/L (21.0-32.0)
[2017-12-31 13:42] LABS: CREATININE 1.5 MG/DL (0.60-1.30)
--- NOTE | 2017-12-31 13:52 | RADRPT ---
EXAM DATE/TIME: 12/31/2017 13:40 [facility] COMPARISON: CT BRAIN W/O CONTRAST, June 25, 2017, 13:11. INDICATIONS : Episode of confusion. RADIATION DOSE: 62.74 CTDIvol (mGy) MEDICAL HISTORY : Cardiovascular disease. Hypertension. SURGICAL HISTORY : Loop recorder. ENCOUNTER: Initial ACUITY: 1 day PAIN SCALE: 0/10 LOCATION: cranial TECHNIQUE: Multiple contiguous axial images were obtained of the head. Using automated exposure control and adj ustment of the mA and/or kV according to patient size, radiation dose was kept as low as reasonably a chievable to obtain optimal diagnostic quality images. DICOM format image data is available electro nically for review and comparison. FINDINGS: CEREBRUM: The ventricles are normal for age. No evidence of midline shift, mass lesion, hemorrhage or acute in farction. No extra-axial fluid collections are seen. POSTERIOR FOSSA: The cerebellum and brainstem are intact. The 4th ventricle is midline. The cerebellopontine angle i s unremarkable. EXTRACRANIAL: The visualized portion of the orbits is intact. SKULL: The calvaria is intact. No evidence of skull fracture. CONCLUSION: 1. No acute intracranial abnormality identified. 2. Stable compared to a previous study dated 06/25/17. Carlo Sigala MD on December 31, 2017 at 13:48 Board Certified Radiologist. This report was verified electronically.
[2017-12-31 14:34] LABS: BILIRUBIN, URINE NEG (NEG); BLOOD, URINE MOD (NEG); GLUCOSE,URINE NEG (NEG); KETONE, URINE TRACE mg/dL (NEG); NITRITE,URINE NEG (NEG); URINE LEUKOCYTE ESTERASE NEG (NEG)
[2017-12-31 14:42] LABS: URINE COLOR YELLOW (YELLW/STRAW)
[2017-12-31 14:43] LABS: AMORPHOUS SEDIMENT, URINE FEW; SQUAMOUS EPITHELIAL CELL URINE 0-5 /hpf (0-5); WBC, URINE 0-2 /hpf (0-5)
--- NOTE | 2018-01-01 19:26 | EKG ---
Date Performed: 12/31/2017 Time Performed: 12:50:25 PTAGE: 77 years EKG: ATRIAL FIBRILLATION MARKED LEFT AXIS DEVIATION MODERATE INTRAVENTRICULAR CONDUCTION DELAY A BNORMAL ECG Since the prior tracing, there has been no significant change PREVIOUS TRACING : 06/25/2017 12.28 DOCTOR: Eduard Lawson Interpretating Date/Time 01/01/2018 19:25:06
== END 2017-12-31 15:11 | disposition home or self-care (01) ==
LOC: PHED 12:18
DX: R40.4 Transient alteration of awareness (principal); E86.0 Dehydration; R94.31 Abnormal electrocardiogram [ECG] [EKG]; I48.91 Unspecified atrial fibrillation; I10 Essential (primary) hypertension; E78.00 Pure hypercholesterolemia, unspecified; N40.0 Benign prostatic hyperplasia without lower urinary tract symptoms; Z79.01 Long term (current) use of anticoagulants; Z87.39 Personal history of other diseases of the musculoskeletal system and connective tissue; Z87.09 Personal history of other diseases of the respiratory system
CPT/HCPCS: 70450; 80048; 81001; 85025; 93005; 99284

== ENCOUNTER 2018-10-09 19:05 | Inpatient (IN) ==
[2018-10-09] MEDS ORDERED: Sod Chloride 0.9% Inj 1,000 ML IV.CONT SCH (19:15)
--- NOTE | 2018-10-09 19:30 | ED ---
HPI General Chief Complaint: Stroke Alert Stated Complaint: AMS Time Seen by Provider: 10/09/18 19:12 History of Present Illness HPI Narrative: Patient is an 78-year-old male who today for most of the day was mildly confused and went for his I procedure he was going to have a Lasix kind of treatment for vascular bleeding in his eye according to his . He had recently been on and now it was off of Coumadin 4 days he was off he had a dental procedure 2 days ago and then 1 day ago today he started his Coumadin again now he is here he is altered he is unable to speak fluidly and he is not following commands he actually was at the procedure for his eyes he began the procedure but he would not follow commands about his eyes brought him to the ER. In the ER patient is awake alert speaking in appropriate 1 word answers however all commands to squeeze my finger to lift his legs to smile symmetrically were all followed however when I asked him to close his eyes tightly he refused to follow my command it was very strange that all the other commands were followed except the eye command. He has a history of hypertension he has a history of A. fib for which she is on Coumadin patient also has history of prostate issues but said he is incontinent of urine but never had a UTI possibly this is a global presentation of a urine infection systemically affecting his or possibly a CVA hemorrhagic stroke note stroke alert is activated due to the aphasia and decreased mental awareness and the lack of following commands with the eyes blood pressure was 166/90 heart rate was 89 patient is taken to CAT scan I speak to Dr. Isbell's of neurology Related Data Home Medications Medication Instructions Recorded Confirmed metoprolol succinate 25 mg PO DAILY 10/09/18 10/09/18 warfarin 5 mg PO DAILY 10/09/18 10/09/18 Allergies Allergy/AdvReac Type Severity Reaction Status Date / Time No Known Allergies Allergy Verified 10/09/18 21:08 Review of Systems ROS: all other systems reviewed are negative [facility] Medical History Medical History Atrial fibrillation (Acute) High cholesterol (Acute) Hypertension (Acute) Surgical History Surgical History History of appendectomy (Acute) History of hernia surgery (Acute) History of intestinal surgery (Acute) History of left hip replacement (Acute) History of loop recorder (Acute) History of repair of rotator cuff (Acute) Social History Social History Substance History: No History of Abuse Smoking Status: Former smoker How Often Do You Have a Drink Containing Alcohol: Never Recent Out of Country Travel within the Last 8 Weeks: Yes Exam Narrative Exam Narrative: GENERAL: pt has fluctuating following of commands , clear then slightly confused SKIN: Warm and dry. HEAD: Atraumatic. Normocephalic. EYES: Pupils equal and round. No scleral icterus. No injection or drainage. at first exam he would no follow eye commands to " open wide and close tight " no response then after CT and bedside he followed eye commands completely correctly ENT: No nasal bleeding or discharge. Mucous membranes pink and moist. NECK: Trachea midline. No JVD. CARDIOVASCULAR: Regular rate and rhythm. RESPIRATORY: No accessory muscle use. Clear to auscultation. Breath sounds equal bilaterally. GASTROINTESTINAL: Abdomen soft, non-tender, nondistended. Hepatic and splenic margins not palpable. MUSCULOSKELETAL: Extremities without clubbing, cyanosis, or edema. No obvious deformities. NEUROLOGICAL: Awake and alert. No obvious cranial nerve deficits. Motor grossly within normal limits. Five out of 5 muscle strength in the arms and legs. Normal speech. PSYCHIATRIC: Appropriate mood and affect; insight and judgment normal. Course Initial Documented Vital Signs Pulse Rate 89 10/09/18 19:08 Respiratory Rate 20 10/09/18 19:08 Blood Pressure 166/92 H 10/09/18 19:08 Pulse Oximetry 95 10/09/18 19:08 Last Documented Vital Signs Pulse Rate 80 10/09/18 22:00 Respiratory Rate 20 10/09/18 19:08 Blood Pressure 146/76 H 10/09/18 22:00 Pulse Oximetry 81 L 10/09/18 22:00 NIH Stroke Scale NIH Stroke Scale Level of Consciousness: 0-Alert Orientation Questions: 1-One task correct Responds to Commands: 1-One task correct Gaze Eye Movement: 0-Horizontal movement WNL Visual [place]: 0-No visual field defect Facial Movement: 0-Normal Motor Functions Arm LEFT: 0-No drift Motor Functions Arm RIGHT: 0-No drift Motor Functions Leg LEFT: 0-No drift Motor Functions Leg RIGHT: 0-No drift Limb Ataxia: 0-No ataxia Sensory Loss: 0-No sensory loss Best Language: 1-Mild aphasia Articulation: 0-Normal Extinction or Inattention Sensory: 0-Absent Total: 3 Medical Decision Making MDM Narrative Medical decision making narrative: CTA head is negative and unchanged from prior CTAs that are available for the radiologist to interpret CT a Novast large vessel occlusion or thrombus patient's symptoms of all resolved patient is admitted to [facility] neurology Dr. Isbell is bedside he evaluates the patient agrees that may be heparin without a bolus would be a indicated to the fact the patient is off Coumadin and will take a few days to become therapeutic INR is 1.3 heparin is started at 1200 units an hour admitted to [facility] with neurology consult Dr. Isbell following patient is stable and all symptoms have resolved by the time patient is discharged from the ER to admission Medical Screen Exam Complete: Yes Emergency Medical Condition: Yes Differential Diagnosis Differential Diagnosis: Differential diagnosis includes TIA versus CVA versus hemorrhagic stroke versus systemic illness UTI causing altered mental status versus ocular ischemia versus head trauma versus anticoagulation causing hemorrhagic stroke versus lack of Coumadin causing ischemic stroke Lab Data Lab results reviewed: Yes I reviewed the patient's lab results. Result diagrams: 10/09/18 19:15 10/09/18 19:15 Lab Results 10/09/18 10/09/18 10/09/18 Range/Units 19:15 19:15 19:15 CBC w Diff Auto diff final WBC 13.5 H (4.0-11.0) th/mm3 RBC 5.46 (4.50-5.90) mil/mm3 Hgb 15.3 (13.0-17.0) gm/dL Hct 47.3 (39.0-51.0) % MCV 86.8 (80.0-100.0) fL MCH 28.0 (27.0-34.0) pg MCHC 32.3 (32.0-36.0) % RDW 15.4 (11.6-17.2) % Plt Count 113 L (150-450) th/mm3 MPV 7.9 (7.0-11.0) fL Neut % (Auto) 86.9 H (16.0-70.0) % Lymph % (Auto) 4.9 L (9.0-44.0) % Jenkins % (Auto) 7.8 (0.0-8.0) % Eos % (Auto) 0.2 (0.0-4.0) % Baso % (Auto) 0.2 (0.0-2.0) % Neut # (Auto) 11.7 H (1.8-7.7) th/mm3 Lymph # (Auto) 0.7 L (1.0-4.8) th/mm3 Jenkins # (Auto) 1.1 H (0.0-0.9) th/mm3 Eos # (Auto) 0.0 (0.0-0.4) th/mm3 Baso # (Auto) 0.0 (0.0-0.2) th/mm3 WBC Differential . Differential Comment . PT 12.7 H (9.8-11.6) sec INR 1.3 Ratio APTT 31.1 (23.4-31.7) sec Fibrinogen (227-377) mg/dL Sodium (136-145) meq/L Potassium (3.5-5.1) meq/L Chloride (98-107) meq/L Carbon Dioxide (21.0-32.0) meq/L Anion Gap (5-15) meq/L BUN (7-18) mg/dL Creatinine (0.60-1.30) mg/dL Estimated GFR (>89) mL/min POC Glucose (68-110) mg/dl Random Glucose (74-106) mg/dL Calcium (8.5-10.1) mg/dL Total Bilirubin (0.2-1.0) mg/dL AST (15-37) U/L ALT (12-78) U/L Alkaline Phosphatase (45-117) U/L Total Protein (6.4-8.2) g/dL Albumin (3.4-5.0) g/dL Urine Color (Yellw/Straw) Urine Clarity (Clear) Urine pH (5.0-8.5) Ur Specific [place] (1.002-1.035) Urine Protein (Neg-Trace) mg/dL Urine Glucose (UA) (Negative) mg/dL Urine Ketones (Negative) mg/dL Urine Occult Blood (Negative) Urine Nitrate (Negative) Urine Bilirubin (Negative) Urine Urobilinogen (Less than 2) mg/dL Ur Leukocyte Esterase (Negative) Urine RBC (0-3) /hpf Urine WBC (0-5) /hpf Ur Squamous Epith Cells (0-5) /hpf Micro UA Comment Ur Microscopic Review Urine Culture Comments Urine Opiates Screen (Neg) Ur Barbiturates Screen (Neg) Ur Amphetamines Screen (Neg) U Benzodiazepines Scrn (Neg) Urine Cocaine Screen (Neg) U Cannabinoids Screen (Neg) Blood Type A Positive Antibody Screen Negative 10/09/18 10/09/18 10/09/18 Range/Units 19:15 19:15 19:37 CBC w Diff WBC (4.0-11.0) th/mm3 RBC (4.50-5.90) mil/mm3 Hgb (13.0-17.0) gm/dL Hct (39.0-51.0) % MCV (80.0-100.0) fL MCH (27.0-34.0) pg MCHC (32.0-36.0) % RDW (11.6-17.2) % Plt Count (150-450) th/mm3 MPV (7.0-11.0) fL Neut % (Auto) (16.0-70.0) % Lymph % (Auto) (9.0-44.0) % Jenkins % (Auto) (0.0-8.0) % Eos % (Auto) (0.0-4.0) % Baso % (Auto) (0.0-2.0) % Neut # (Auto) (1.8-7.7) th/mm3 Lymph # (Auto) (1.0-4.8) th/mm3 Jenkins # (Auto) (0.0-0.9) th/mm3 Eos # (Auto) (0.0-0.4) th/mm3 Baso # (Auto) (0.0-0.2) th/mm3 WBC Differential Differential Comment PT (9.8-11.6) sec INR Ratio APTT (23.4-31.7) sec Fibrinogen 445 H (227-377) mg/dL Sodium 137 (136-145) meq/L Potassium 4.3 (3.5-5.1) meq/L Chloride 103 (98-107) meq/L Carbon Dioxide 27.7 (21.0-32.0) meq/L Anion Gap 6 (5-15) meq/L BUN 28 H (7-18) mg/dL Creatinine 1.50 H (0.60-1.30) mg/dL Estimated GFR 45 L (>89) mL/min POC Glucose 97 (68-110) mg/dl Random Glucose 113 H (74-106) mg/dL Calcium 8.7 (8.5-10.1) mg/dL Total Bilirubin 1.2 H (0.2-1.0) mg/dL AST 16 (15-37) U/L ALT 19 (12-78) U/L Alkaline Phosphatase 86 (45-117) U/L Total Protein 7.4 (6.4-8.2) g/dL Albumin 3.4 (3.4-5.0) g/dL Urine Color (Yellw/Straw) Urine Clarity (Clear) Urine pH (5.0-8.5) Ur Specific [place] (1.002-1.035) Urine Protein (Neg-Trace) mg/dL Urine Glucose (UA) (Negative) mg/dL Urine Ketones (Negative) mg/dL Urine Occult Blood (Negative) Urine Nitrate (Negative) Urine Bilirubin (Negative) Urine Urobilinogen (Less than 2) mg/dL Ur Leukocyte Esterase (Negative) Urine RBC (0-3) /hpf Urine WBC (0-5) /hpf Ur Squamous Epith Cells (0-5) /hpf Micro UA Comment Ur Microscopic Review Urine Culture Comments Urine Opiates Screen (Neg) Ur Barbiturates Screen (Neg) Ur Amphetamines Screen (Neg) U Benzodiazepines Scrn (Neg) Urine Cocaine Screen (Neg) U Cannabinoids Screen (Neg) Blood Type Antibody Screen 10/09/18 10/09/18 Range/Units 20:20 20:20 CBC w Diff WBC (4.0-11.0) th/mm3 RBC (4.50-5.90) mil/mm3 Hgb (13.0-17.0) gm/dL Hct (39.0-51.0) % MCV (80.0-100.0) fL MCH (27.0-34.0) pg MCHC (32.0-36.0) % RDW (11.6-17.2) % Plt Count (150-450) th/mm3 MPV (7.0-11.0) fL Neut % (Auto) (16.0-70.0) % Lymph % (Auto) (9.0-44.0) % Jenkins % (Auto) (0.0-8.0) % Eos % (Auto) (0.0-4.0) % Baso % (Auto) (0.0-2.0) % Neut # (Auto) (1.8-7.7) th/mm3 Lymph # (Auto) (1.0-4.8) th/mm3 Jenkins # (Auto) (0.0-0.9) th/mm3 Eos # (Auto) (0.0-0.4) th/mm3 Baso # (Auto) (0.0-0.2) th/mm3 WBC Differential Differential Comment PT (9.8-11.6) sec INR Ratio APTT (23.4-31.7) sec Fibrinogen (227-377) mg/dL Sodium (136-145) meq/L Potassium (3.5-5.1) meq/L Chloride (98-107) meq/L Carbon Dioxide (21.0-32.0) meq/L Anion Gap (5-15) meq/L BUN (7-18) mg/dL Creatinine (0.60-1.30) mg/dL Estimated GFR (>89) mL/min POC Glucose (68-110) mg/dl Random Glucose (74-106) mg/dL Calcium (8.5-10.1) mg/dL Total Bilirubin (0.2-1.0) mg/dL AST (15-37) U/L ALT (12-78) U/L Alkaline Phosphatase (45-117) U/L Total Protein (6.4-8.2) g/dL Albumin (3.4-5.0) g/dL Urine Color Yellow (Yellw/Straw) Urine Clarity Clear (Clear) Urine pH 7.0 (5.0-8.5) Ur Specific [place] Less/equal 1.005 (1.002-1.035) Urine Protein Negative (Neg-Trace) mg/dL Urine Glucose (UA) Negative (Negative) mg/dL Urine Ketones Negative (Negative) mg/dL Urine Occult Blood Moderate H (Negative) Urine Nitrate Negative (Negative) Urine Bilirubin Negative (Negative) Urine Urobilinogen 2.0 H (Less than 2) mg/dL Ur Leukocyte Esterase Negative (Negative) Urine RBC 4-15 H (0-3) /hpf Urine WBC 6-8 H (0-5) /hpf Ur Squamous Epith Cells 0-5 (0-5) /hpf Micro UA Comment Culture not ind Ur Microscopic Review Microscopic reviewed Urine Culture Comments Culture not ind Urine Opiates Screen Neg (Neg) Ur Barbiturates Screen Neg (Neg) Ur Amphetamines Screen Neg (Neg) U Benzodiazepines Scrn Neg (Neg) Urine Cocaine Screen Neg (Neg) U Cannabinoids Screen Neg (Neg) Blood Type Antibody Screen Imaging Data Radiologist's impression: Chest X-Ray 10/09/18 19:12 CONCLUSION: Mild apparent scarring and/or atelectasis at the left lung base with no acute cardiopulmonary disease. Head CT 10/09/18 19:12 CONCLUSION: 1. Stable noncontrast head CT with no evidence of hemorrhage or acute infarction. Report was called by [Dr. Dave to Dr. Glover at 1936 hours. ] Head CTA 10/09/18 19:12 CONCLUSION: 1. No large vessel occlusion, particularly in the anterior circulation as questioned. 2. 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 Findings were personally discussed with Dr. Isbell at 7:46 PM. . Neck CTA 10/09/18 19:12 CONCLUSION: 1. No thrombosis, dissection or other acute carotid abnormality. 2. Mild atherosclerosis at both bifurcations. Short segment atherosclerosis and roughly 30% narrowing of the proximal to mid right internal carotid artery. I have reviewed all the radiology interpretations by the radiology MD ECG Data Attestation: I personally reviewed and interpreted this ECG as follows: (A. fib with a rate of 83 bpm) Discharge Plan Discharge Disposition Patient Disposition: 30 Still Patient Physicians Team ED Provider: Anthony Glover Primary Care Provider: Cynthia Knox Attending Provider: Uzma Brown Other Providers: Donal Doll Status ED Status: Admitted Patient
--- NOTE | 2018-10-09 19:40 | CT ---
EXAM DATE: 10/09/2018 7:34 PM EST AGE/SEX: 78 years / Male INDICATIONS: Stroke alert. Altered mental status. CLINICAL DATA: This is the patient's initial encounter. Patient reports that signs and symptoms have been present for 1 day and indicates a pain score of 0/10. MEDICAL/SURGICAL HISTORY: None. None. RADIATION DOSE: 61.90 CTDI (mGy) COMPARISON: [facility], CT BRAIN W/O CONTRAST, 12/31/2017. . TECHNIQUE: CT of the head without contrast. Using automated exposure control and adjustment of the mA and/or kV according to patient size, radiation dose was kept as low as reasonably achievable to ob tain optimal diagnostic quality images. DICOM format image data is available electronically for revi ew and comparison. FINDINGS: Cerebrum: The ventricles are stable in appearance with mild prominence of the lateral ventricles. No evidence of midline shift, mass lesion, hemorrhage or acute infarction. Mild chronic small vessel is chemic changes are again noted. No extraaxial fluid collections are seen. Posterior Fossa: The cerebellum and brainstem are intact. The 4th ventricle is midline. The cerebe llopontine angle is unremarkable. Extracranial: The visualized portion of the orbits is intact. Skull: The calvaria is intact. No evidence of skull fracture. CONCLUSION: 1. Stable noncontrast head CT with no evidence of hemorrhage or acute infarction. Report was called by [Dr. Dave to Dr. Glover at 1936 hours. ] Electronically signed by: James Dave MD 10/09/2018 7:38 PM EST
--- NOTE | 2018-10-09 19:50 | CT ---
EXAM DATE: 10/09/2018 7:44 PM EST AGE/SEX: 78 years / Male INDICATIONS: Stroke alert. Altered mental status. CLINICAL DATA: This is the patient's initial encounter. Patient reports that signs and symptoms have been present for 1 day and indicates a pain score of 0/10. MEDICAL/SURGICAL HISTORY: None. None. RADIATION DOSE: 42.32 CTDI (mGy) ; Combined studies COMPARISON: . TECHNIQUE: Volumetric scanning was performed using a multi-row detector CT scanner during bolus infu devon of 50 ml Visipaque 320 (iodixanol) nonionic water-soluble contrast as a cumulative dose for mul tiple exams. The data was post processed with a variety of visualization algorithms including full volume maximum intensity projection, multi-planar sliding thin slab reformation, curved planar reform ation, and surface rendering techniques. Using automated exposure control and adjustment of the mA a nd/or kV according to patient size, radiation dose was kept as low as reasonably achievable to obtain optimal diagnostic quality images. DICOM format image data is available electronically for review a nd comparison. FINDINGS: Anterior Circulation: Intracranial Carotid Arteries: Patent. ROSEANNE: There is no evidence for aneurysm, vessel truncation or stenosis, and no evidence for vascular m alformation. MCA: There is no evidence for aneurysm, vessel truncation or stenosis, and no evidence for vascular m alformation. Posterior Circulation: Distal Vertebral Arteries: Bulky calcified plaque in the distal left vertebral artery with likely res ultant moderate stenosis. Basilar Artery: There is no evidence for aneurysm, vessel truncation or stenosis, and no evidence for vascular malformation. PROBATE CLERK and Cerebellar Branches: There is no evidence for aneurysm, vessel truncation or stenosis, and no evidence for vascular malformation. CONCLUSION: 1. No large vessel occlusion, particularly in the anterior circulation as questioned. 2. 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 Findings were personally discussed with Dr. Isbell at 7:46 PM. . Electronically signed by: Charles Govea MD 10/09/2018 7:48 PM EST
[2018-10-09] MEDS ORDERED: Heparin Drip 25,000 UNIT/250 ML BAG IV.CONT PRN (19:53)
--- NOTE | 2018-10-09 20:03 | XR ---
EXAM DATE: 10/09/2018 7:59 PM EST AGE/SEX: 78 years / Male INDICATIONS: Stroke alert, short of breath. CLINICAL DATA: This is the patient's initial encounter. Patient reports that signs and symptoms have been present for 1 day and indicates a pain score of 0/10. MEDICAL/SURGICAL HISTORY: Cardiovascular disease. Hypertension. Appendectomy. COMPARISON: No prior exams available for comparison. FINDINGS: A single AP view of the chest demonstrates the lungs to be symmetrically aerated without evidence of mass, infiltrate or effusion. There is mild patchy atelectasis or scarring at the left lung base. The re are multiple overlying electrocardiogram leads. Mild atherosclerotic changes are present in the ao rta with dilatation and mild calcification. The cardiomediastinal contours are unremarkable. Osseous structures are intact. CONCLUSION: Mild apparent scarring and/or atelectasis at the left lung base with no acute cardiopulmonary disease . Electronically signed by: James Dave MD 10/09/2018 8:02 PM EST
[2018-10-09 20:12] LABS: Baso % (Auto) 0.2 % (0.0-2.0); Eos % (Auto) 0.2 % (0.0-4.0); Hematocrit 47.3 % (39.0-51.0); Hemoglobin 15.3 gm/dL (13.0-17.0); Lymph # (Auto) 0.7 th/mm3 (1.0-4.8); Lymph % (Auto) 4.9 % (9.0-44.0); Mean Corpuscular HGB Conc 32.3 % (32.0-36.0); Mean Corpuscular Volume 86.8 fL (80.0-100.0); Mean Platelet Volume 7.9 fL (7.0-11.0); Mono # (Auto) 1.1 th/mm3 (0.0-0.9); Mono % (Auto) 7.8 % (0.0-8.0); Neut # (Auto) 11.7 th/mm3 (1.8-7.7); Neut % (Auto) 86.9 % (16.0-70.0); Platelet Count 113 th/mm3 (150-450); Red Blood Count 5.46 mil/mm3 (4.50-5.90); Red Cell Distribution Width 15.4 % (11.6-17.2); White Blood Count 13.5 th/mm3 (4.0-11.0)
[2018-10-09 20:14] LABS: Activated Partial Thrombo Time 31.1 sec (23.4-31.7); INR 1.3 Ratio; Prothrombin Time 12.7 sec (9.8-11.6)
[2018-10-09 20:15] LABS: Chloride 103 meq/L (98-107); Potassium 4.3 meq/L (3.5-5.1); Sodium 137 meq/L (136-145)
--- NOTE | 2018-10-09 20:19 | CT ---
EXAM DATE: 10/09/2018 8:13 PM EST AGE/SEX: 78 years / Male INDICATIONS: Stroke alert. Altered mental status. CLINICAL DATA: This is the patient's initial encounter. Patient reports that signs and symptoms have been present for 1 day and indicates a pain score of 0/10. MEDICAL/SURGICAL HISTORY: None. None. RADIATION DOSE: 42.32 CTDI (mGy) ; Combined studies COMPARISON: No prior exams available for comparison. TECHNIQUE: Volumetric scanning was performed using a multirow detector CT scanner during bolus infus ion of 50 ml Visipaque 320 (iodixanol) nonionic water-soluble contrast as a cumulative dose for mult iple exams. The data was postprocessed with a variety of visualization algorithms including full-vo lume maximum intensity projection, multiplanar sliding thin-slab reformation, curved-planar reformati on, and surface-rendering techniques. Using automated exposure control and adjustment of the mA and/ or kV according to patient size, radiation dose was kept as low as reasonably achievable to obtain op timal diagnostic quality images. DICOM format image data is available electronically for review and comparison. Percent stenosis is calculated using the diameter of the stenotic region over the diameter of the nor mal distal internal carotid artery. FINDINGS: Aortic Arch: There is a three-vessel origin of the great vessels from the aorta. No evide nce of ostial narrowing Right Carotid: The common carotid artery is intact. The carotid bulb has a normal configuration wit hout ulceration or narrowing. Slightly above the bifurcation is a less than 1 cm long area of roughly 30% atherosclerotic narrowing of the right internal carotid artery. Other than tortuosity of the rig ht internal carotid artery is otherwise within normal limits.. The external carotid artery is intact . Left Carotid: The common carotid artery is intact. The carotid bulb has slight atherosclerosis but an otherwise normal configuration without ulceration or narrowing. The internal carotid artery lumen is smooth without stenosis. The external carotid artery is intact. Vertebrals: The vertebral arteries have a symmetric diameter. No stenotic lesions are seen. CONCLUSION: 1. No thrombosis, dissection or other acute carotid abnormality. 2. Mild atherosclerosis at both bifurcations. Short segment atherosclerosis and roughly 30% narrowin g of the proximal to mid right internal carotid artery. Electronically signed by: Josiah Gibson MD 10/09/2018 8:18 PM EST
[2018-10-09 20:20] LABS: Albumin 3.4 g/dL (3.4-5.0); Anion Gap 6 meq/L (5-15); Blood Urea Nitrogen 28 mg/dL (7-18); Calcium 8.7 mg/dL (8.5-10.1); Carbon Dioxide 27.7 meq/L (21.0-32.0); Glucose,Random 113 mg/dL (74-106)
[2018-10-09 20:23] LABS: Alanine Aminotransferase 19 U/L (12-78); Aspartate Aminotransferase 16 U/L (15-37); Glomerular Filtration Rate 45 mL/min (>89)
[2018-10-09 20:25] LABS: Total Protein 7.4 g/dL (6.4-8.2)
[2018-10-09 20:26] LABS: Alkaline Phosphatase 86 U/L (45-117)
[2018-10-09 20:39] LABS: Bilirubin,Urine Negative (Negative); Clarity,Urine Clear (Clear); Color,Urine Yellow (Yellw/Straw); Glucose,Urine (UA) Negative (Negative); Leukocyte Esterase,Urine Negative (Negative); Nitrite,Urine Negative (Negative); Specific Gravity,Urine Less/Equal 1.005 (1.002-1.035)
[2018-10-09 20:48] LABS: Amphetamine Screen,Urine Neg (Neg); Barbiturate Screen,Urine Neg (Neg); Cannabinoid Screen,Urine Neg (Neg); Cocaine Screen,Urine Neg (Neg)
[2018-10-09 20:49] LABS: Opiate Screen,Urine Neg (Neg)
[2018-10-09 21:06] LABS: Squamous Epithelial Cell,Urine 0-5 /hpf (0-5)
--- NOTE | 2018-10-09 21:17 | MB ---
cc: Inder Isbell MD, PhD DATE: 10/09/2018 REASON FOR CONSULTATION: Stroke alert. HISTORY OF PRESENT ILLNESS: Mr. Carroll is a very nice 78-year-old left-handed man who earlier today, around 11:00 a.m., developed difficulty with comprehension and confusion. His states that this came on suddenly, he had some difficulty with his speech as well, with difficulty following commands. He had no focal weakness or numbness. The patient has a history of atrial fibrillation for which he takes Coumadin. This is on hold for the past 4 days because he had a dental procedure yesterday. He was supposed to have LASIK surgery today, but this was postponed. Therefore, he resumed his Coumadin this evening. He came to the ER this evening because of the difficulty with comprehension and therefore, a stroke alert was called. The patient has since shown improvement with his speech and his comprehension. He has no history of stroke or TIA. PAST MEDICAL HISTORY: The patient has a history of atrial fibrillation. NEUROLOGICAL EXAMINATION: The patient is alert and oriented. His speech is fluent at this time. He follows commands normally even complex commands, which his states is definitely an improvement from before. There is no neglect. Cranial nerves 2-12 are normal. There is no facial droop. On motor examination, there is 5/5 strength of all groups in both upper and lower extremities. There is no drift. Fundus was normal. Reflexes are symmetric. Sensory exam intact. CT scan of the brain shows no acute change with no evidence of any hemorrhage. No evidence of acute change. CT angiogram of the brain was negative for large vessel occlusion. There is moderate stenosis of the distal left vertebral artery. A CT of the neck is pending. Cardiac telemetry shows atrial fibrillation. LABORATORY DATA: Coags are currently pending. Glucose is 97. Other labs pending. IMPRESSION: Probable transient ischemic attack, now resolving. The patient is out of the window for TPA therefore not a candidate for IV TPA. There is no evidence of any large vessel occlusion on the CTA, therefore, will not proceed with CT perfusion and the RAPID program. I did discuss the case with Dr. Govea of radiology, and there is no need for consideration for intervention in this case given the negative CTA result. Would recommend starting the patient on IV heparin, following the INR, and resume Coumadin as well. Continue heparin until the INR is therapeutic between 2 and 3. Follow up on the CTA of the carotid arteries. We will also check an echocardiogram as well as lipid panel. Thank you for asking us to see this nice patient in consult. Inder Isbell MD, PhD LYNN/wilfred , 08:09 PM , 08:23 PM
[2018-10-09] MEDS ORDERED: Bisacodyl 10 MG Supp RECTAL PRN (21:21)
[2018-10-09] MEDS ORDERED: ceFAZolin 2 GM Premix Inj 2 GM/50 ML PIGGYBACK IV.SIG ONE (21:45)
[2018-10-09] MEDS: Heparin Drip 25,000 UNIT/250 ML BAG IV.CONT PRN (21:46)
[2018-10-09] MEDS: Sod Chloride 0.9% Inj 1,000 ML IV.CONT SCH (22:38)
[2018-10-10 02:16] LABS: Chol/HDL Ratio 3.84 Ratio
[2018-10-10] MEDS: Sod Chloride 0.9% Inj 1,000 ML IV.CONT SCH ×2 (09:10→18:29)
[2018-10-10 09:37] LABS: Baso # (Auto) 0.3 th/mm3 (0.0-0.2); Baso % (Auto) 2.3 % (0.0-2.0); Eos % (Auto) 0.1 % (0.0-4.0); Hematocrit 47.1 % (39.0-51.0); Hemoglobin 14.8 gm/dL (13.0-17.0); Lymph # (Auto) 0.5 th/mm3 (1.0-4.8); Lymph % (Auto) 3.5 % (9.0-44.0); Mean Corpuscular HGB Conc 31.5 % (32.0-36.0); Mean Corpuscular Hemoglobin 27.5 pg (27.0-34.0); Mean Corpuscular Volume 87.5 fL (80.0-100.0); Mean Platelet Volume 7.5 fL (7.0-11.0); Mono # (Auto) 0.7 th/mm3 (0.0-0.9); Mono % (Auto) 4.9 % (0.0-8.0); Neut # (Auto) 11.8 th/mm3 (1.8-7.7); Neut % (Auto) 89.2 % (16.0-70.0); Platelet Count 101 th/mm3 (150-450); Red Blood Count 5.38 mil/mm3 (4.50-5.90); White Blood Count 13.3 th/mm3 (4.0-11.0)
[2018-10-10 09:51] LABS: Calcium 8.4 mg/dL (8.5-10.1); Carbon Dioxide 26.8 meq/L (21.0-32.0)
--- NOTE | 2018-10-10 09:52 | P.PNNEU ---
Subjective Subjective Comments: No new neuro sx. speech and comprehension normal . No focal weakness Active Medications: Active Medications Acetaminophen (Tylenol) 650 mg PO Q4H PRN PRN Reason: Temp > 100.4 Al Hydroxide/Mg Hydroxide (Milk Of Magnesia Liq) 30 ml PO Q12H PRN PRN Reason: Mild Constipation Bisacodyl (Dulcolax Supp) 10 mg RECTAL DAILY PRN PRN Reason: SEVERE CONSITIPATION Heparin Sodium/Dextrose (Heparin/D5w 25,000 U/250 Ml) 25,000 unit in 250 mls @ 0 mls/hr IV.CONT TITRATE PRN; Protocol PRN Reason: Per Protocol Last Titration: 10/10/18 06:27 Dose: 1,100 units/hr, 11 mls/hr Sodium Chloride (Ns Inj) 1,000 mls @ 100 mls/hr IV.CONT .Q10H ANJU Last Admin: 10/10/18 09:10 Dose: 100 mls/hr Lactulose (Lactulose Liq) 30 ml PO DAILY PRN PRN Reason: SEVERE CONSITIPATION Ondansetron HCl (Zofran Inj) 4 mg IV.PUSH Q6H PRN PRN Reason: NAUSEA OR VOMITING Sennosides (Senokot) 17.2 mg PO Q12H PRN PRN Reason: Moderate Constipation Allergies/Adverse Reactions: Allergies Allergy/AdvReac Type Severity Reaction Status Date / Time No Known Allergies Allergy Verified 10/09/18 21:08 Physical Exam Vital signs: Vital Signs 10/09/18 19:08 10/09/18 19:30 10/09/18 19:53 Temperature 98.5 F 97.6 F Pulse Rate 89 74 86 Respiratory Rate 20 18 20 Blood Pressure 166/92 H 188/104 H 161/97 H Pulse Oximetry 96 100 10/09/18 20:00 10/09/18 20:30 10/09/18 21:00 Temperature Pulse Rate 75 85 72 Respiratory Rate 18 18 18 Blood Pressure 163/87 H 166/106 H 140/98 H Pulse Oximetry 95 96 95 10/09/18 21:30 10/09/18 22:00 10/09/18 23:00 Temperature 96.6 F L Pulse Rate 77 80 89 Respiratory Rate 18 18 20 Blood Pressure 173/95 H 146/76 H 155/95 H Pulse Oximetry 96 95 97 10/10/18 00:02 10/10/18 04:00 10/10/18 04:02 Temperature 97.6 F Pulse Rate 93 H 86 100 H Respiratory Rate 20 Blood Pressure 152/67 H Pulse Oximetry 100 10/10/18 08:00 Temperature 97.7 F Pulse Rate 90 Respiratory Rate 18 Blood Pressure 147/93 H Pulse Oximetry 96 Intake & Output 10/09/18 10/10/18 10/10/18 18:59 06:59 18:59 Intake Total 852 / 852 291 / 291 Balance 852 / 852 291 / 291 Weight 89.2 kg Intake: IV 852 / 852 291 / 291 Heparin/D5W 25,000 U/250 mL 25, 93 / 93 000 unit In 250 ml @ Per Protocol IV.CONT TITRATE PRN Rx #:[id number] NS Inj 1,000 ML @ 100 mls/hr IV 709 / 709 291 / 291 .CONT .Q10H ANJU Rx#:[id number] Ancef 2 GM Premix Inj 2 gm In 50 / 50 50 ml @ 100 mls/hr IV.SIG ONCE ONE Rx#:[id number] Oral 0 / 0 Other: # Voids 3 # Urine Diapers 1 Weight On Admission 90.2 kg - Routine Neurological Exam alert, speech normal, comrehension intact CN 2-12 normal MOTOR 5/5 BUE and BLE. No drift. Objective Laboratory Results - last 24 hr 10/09/18 10/09/18 10/09/18 19:15 19:15 19:15 CBC w Diff Auto diff final WBC 13.5 H RBC 5.46 Hgb 15.3 Hct 47.3 MCV 86.8 MCH 28.0 MCHC 32.3 RDW 15.4 Plt Count 113 L MPV 7.9 Neut % (Auto) 86.9 H Lymph % (Auto) 4.9 L Nance % (Auto) 7.8 Eos % (Auto) 0.2 Baso % (Auto) 0.2 Neut # (Auto) 11.7 H Lymph # (Auto) 0.7 L Nance # (Auto) 1.1 H Eos # (Auto) 0.0 Baso # (Auto) 0.0 WBC Differential . Differential Comment . PT 12.7 H INR 1.3 APTT 31.1 Fibrinogen Sodium Potassium Chloride Carbon Dioxide Anion Gap BUN Creatinine Estimated GFR POC Glucose Random Glucose Calcium Total Bilirubin AST ALT Alkaline Phosphatase Total Protein Albumin Triglycerides Cholesterol LDL Cholesterol, Calc HDL Cholesterol Cholesterol/HDL Ratio Urine Color Urine Clarity Urine pH Ur Specific [place] Urine Protein Urine Glucose (UA) Urine Ketones Urine Occult Blood Urine Nitrate Urine Bilirubin Urine Urobilinogen Ur Leukocyte Esterase Urine RBC Urine WBC Ur Squamous Epith Cells Micro UA Comment Ur Microscopic Review Urine Culture Comments Urine Opiates Screen Ur Barbiturates Screen Ur Amphetamines Screen U Benzodiazepines Scrn Urine Cocaine Screen U Cannabinoids Screen Blood Type A Positive Antibody Screen Negative 10/09/18 10/09/18 10/09/18 19:15 19:15 19:15 CBC w Diff WBC RBC Hgb Hct MCV MCH MCHC RDW Plt Count MPV Neut % (Auto) Lymph % (Auto) Nance % (Auto) Eos % (Auto) Baso % (Auto) Neut # (Auto) Lymph # (Auto) Nance # (Auto) Eos # (Auto) Baso # (Auto) WBC Differential Differential Comment PT INR APTT Fibrinogen 445 H Sodium 137 Potassium 4.3 Chloride 103 Carbon Dioxide 27.7 Anion Gap 6 BUN 28 H Creatinine 1.50 H Estimated GFR 45 L POC Glucose Random Glucose 113 H Calcium 8.7 Total Bilirubin 1.2 H AST 16 ALT 19 Alkaline Phosphatase 86 Total Protein 7.4 Albumin 3.4 Triglycerides 91 Cholesterol 169 LDL Cholesterol, Calc 107 H HDL Cholesterol 44.0 Cholesterol/HDL Ratio 3.84 Urine Color Urine Clarity Urine pH Ur Specific [place] Urine Protein Urine Glucose (UA) Urine Ketones Urine Occult Blood Urine Nitrate Urine Bilirubin Urine Urobilinogen Ur Leukocyte Esterase Urine RBC Urine WBC Ur Squamous Epith Cells Micro UA Comment Ur Microscopic Review Urine Culture Comments Urine Opiates Screen Ur Barbiturates Screen Ur Amphetamines Screen U Benzodiazepines Scrn Urine Cocaine Screen U Cannabinoids Screen Blood Type Antibody Screen 10/09/18 10/09/18 10/09/18 19:37 20:20 20:20 CBC w Diff WBC RBC Hgb Hct MCV MCH MCHC RDW Plt Count MPV Neut % (Auto) Lymph % (Auto) Nance % (Auto) Eos % (Auto) Baso % (Auto) Neut # (Auto) Lymph # (Auto) Nance # (Auto) Eos # (Auto) Baso # (Auto) WBC Differential Differential Comment PT INR APTT Fibrinogen Sodium Potassium Chloride Carbon Dioxide Anion Gap BUN Creatinine Estimated GFR POC Glucose 97 Random Glucose Calcium Total Bilirubin AST ALT Alkaline Phosphatase Total Protein Albumin Triglycerides Cholesterol LDL Cholesterol, Calc HDL Cholesterol Cholesterol/HDL Ratio Urine Color Yellow Urine Clarity Clear Urine pH 7.0 Ur Specific [place] Less/equal 1.005 Urine Protein Negative Urine Glucose (UA) Negative Urine Ketones Negative Urine Occult Blood Moderate H Urine Nitrate Negative Urine Bilirubin Negative Urine Urobilinogen 2.0 H Ur Leukocyte Esterase Negative Urine RBC 4-15 H Urine WBC 6-8 H Ur Squamous Epith Cells 0-5 Micro UA Comment Culture not ind Ur Microscopic Review Microscopic reviewed Urine Culture Comments Culture not ind Urine Opiates Screen Neg Ur Barbiturates Screen Neg Ur Amphetamines Screen Neg U Benzodiazepines Scrn Neg Urine Cocaine Screen Neg U Cannabinoids Screen Neg Blood Type Antibody Screen 10/10/18 10/10/18 10/10/18 01:50 07:16 09:25 CBC w Diff Auto diff final WBC 13.3 H RBC 5.38 Hgb 14.8 Hct 47.1 MCV 87.5 MCH 27.5 MCHC 31.5 L RDW 15.0 Plt Count 101 L MPV 7.5 Neut % (Auto) 89.2 H Lymph % (Auto) 3.5 L Nance % (Auto) 4.9 Eos % (Auto) 0.1 Baso % (Auto) 2.3 H Neut # (Auto) 11.8 H Lymph # (Auto) 0.5 L Nance # (Auto) 0.7 Eos # (Auto) 0.0 Baso # (Auto) 0.3 H WBC Differential . Differential Comment . PT INR APTT 48.1 H D Fibrinogen Sodium Potassium Chloride Carbon Dioxide Anion Gap BUN Creatinine Estimated GFR POC Glucose 105 Random Glucose Calcium Total Bilirubin AST ALT Alkaline Phosphatase Total Protein Albumin Triglycerides Cholesterol LDL Cholesterol, Calc HDL Cholesterol Cholesterol/HDL Ratio Urine Color Urine Clarity Urine pH Ur Specific [place] Urine Protein Urine Glucose (UA) Urine Ketones Urine Occult Blood Urine Nitrate Urine Bilirubin Urine Urobilinogen Ur Leukocyte Esterase Urine RBC Urine WBC Ur Squamous Epith Cells Micro UA Comment Ur Microscopic Review Urine Culture Comments Urine Opiates Screen Ur Barbiturates Screen Ur Amphetamines Screen U Benzodiazepines Scrn Urine Cocaine Screen U Cannabinoids Screen Blood Type Antibody Screen Review/Management - Diagnosis (1) Stroke Code(s): I63.9 - Cerebral infarction, unspecified Status: Acute Current Visit: Yes - Review/Management Plan: continue iv heparin until INR 2-3 MRI brain follow up echo Ok to noel from neuro standpoint if stable and when INR 2-3.
[2018-10-10 09:56] LABS: Potassium 4.4 meq/L (3.5-5.1)
[2018-10-10 09:57] LABS: Activated Partial Thrombo Time 47.5 sec (23.4-31.7); INR 1.4 Ratio; Prothrombin Time 13.8 sec (9.8-11.6)
[2018-10-10] MEDS: Acetaminophen 325 MG Tablet PO PRN (11:22)
--- NOTE | 2018-10-10 13:12 | P.HP ---
History of Present Illness Primary Care Physician: Cynthia Knox MD Chief Complaint: Increased confusion, difficulty ambulating History of Present Illness: 78-year-old male with known history of chronic atrial fibrillation, hypertension, hyperlipidemia who presented to the emergency department because of worsening neurological symptoms. Patient was laying in bed quite comfortably. He did answer questions appropriately when questioned. However most information was taken from at bedside. She indicates that over the last 6 months [facility] worsening neurological symptoms of disequilibrium, difficulty with ambulation, increased confusion. She indicates that he has been taking the hospital multiple times for these symptoms and most the time he is found to have dehydration and he does go back to his baseline once he is hydrated. Over the last 6 months he is progressively getting worse. The patient was scheduled to have dental surgery as well as laser eye surgery done this week and he had stopped taking his Coumadin on Sunday. He did go have oral surgery done on Sunday. He went to a retinal specialist and during that exam they could not do the surgery because he could not focus appropriately. They did go [facility] yesterday and when he got home he does appear to be more lethargic and he laid down for nap. When he got up he had difficulty with being able to sit down in order to use the toilet. Because of his worsening symptoms of difficulty in walking, increased confusion, could not focus at the eye surgery the patient's brought him to the hospital for further evaluation. Patient had workup done in emergency department and recommended admission to rule out any acute neurological event. Upon talking the patient he does peer to be a little slow with responses. Memory does have some mild issues over the last 6 weeks he has had a significant decrease in his mentation with increased confusion. They deny any difficulty with eating or swallowing food. No recurrent falling. No unilateral weakness. No paresthesia, numbness. - Diagnosis (1) Disequilibrium (2) Confusion Inpatient Certification: I certify that the inpatient services were ordered in accordance with Medicare regulations governing the order. This includes certification that hospital inpatient services are reasonable and necessary and in the case of services not specified as inpatient-only under 42 CFR 419.22(n), that they are appropriately provided as inpatient services in accordance to with the 2-midnight benchmark under 43 CFR 412.3(e) Estimated Total Length of Stay (Days): 2 Plans for Post Hospital Care: Home Review of Systems All other systems reviewed negative except as stated in HPI Neurologic: Reports abnormal walking, Reports confusion, Reports lack of coordination, Reports unsteadiness, Reports weakness PMFSH - History History Provided By: Patient, Significant Other - Medical History Medical History: Medical History (Last Reviewed 10/10/18 @ 12:59 by CARMITA Snow) Atrial fibrillation High cholesterol Hypertension - Surgical History Surgical History: Surgical History (Last Reviewed 10/10/18 @ 12:59 by CARMITA Snow) History of appendectomy History of hernia surgery History of intestinal surgery History of left hip replacement History of loop recorder History of repair of rotator cuff - Family History Family History: Family History (Last Updated 10/10/18 @ 12:59 by CARMITA Snow) Mother History of brain tumor Father History of myocardial infarction Brother History of myocardial infarction - Tobacco History Second Hand Smoke Exposure: No Smoking Status: Former smoker - Alcohol History How Often Do You Have a Drink Containing Alcohol: Never - Substance Use History Substance History: No History of Abuse - Travel History Recent Travel in the [place] Within the Last 8 Weeks: No Recent Travel Out of the Country Within the Last 8 Weeks: Yes - Immunization History Tetanus Immunization: <5 Years Hx Influenza Vaccine This Season: Yes Medications and Allergies Active Medications: Active Medications Acetaminophen (Tylenol) 650 mg PO Q4H PRN PRN Reason: Temp > 100.4 Last Admin: 10/10/18 11:22 Dose: 650 mg Al Hydroxide/Mg Hydroxide (Milk Of Magnesia Liq) 30 ml PO Q12H PRN PRN Reason: Mild Constipation Bisacodyl (Dulcolax Supp) 10 mg RECTAL DAILY PRN PRN Reason: SEVERE CONSITIPATION Heparin Sodium/Dextrose (Heparin/D5w 25,000 U/250 Ml) 25,000 unit in 250 mls @ 0 mls/hr IV.CONT TITRATE PRN; Protocol PRN Reason: Per Protocol Last Titration: 10/10/18 06:27 Dose: 1,100 units/hr, 11 mls/hr Sodium Chloride (Ns Inj) 1,000 mls @ 100 mls/hr IV.CONT .Q10H ANJU Last Admin: 10/10/18 09:10 Dose: 100 mls/hr Lactulose (Lactulose Liq) 30 ml PO DAILY PRN PRN Reason: SEVERE CONSITIPATION Ondansetron HCl (Zofran Inj) 4 mg IV.PUSH Q6H PRN PRN Reason: NAUSEA OR VOMITING Sennosides (Senokot) 17.2 mg PO Q12H PRN PRN Reason: Moderate Constipation Allergies Allergy/AdvReac Type Severity Reaction Status Date / Time No Known Allergies Allergy Verified 10/09/18 21:08 Home Medications Medication Instructions Recorded Confirmed Type metoprolol succinate 25 mg PO DAILY 10/09/18 10/09/18 History warfarin 5 mg PO DAILY 10/09/18 10/09/18 History Exam Vital signs: Vital Signs 10/09/18 19:08 10/09/18 19:30 10/09/18 19:53 Temperature 98.5 F 97.6 F Pulse Rate 89 74 86 Respiratory Rate 20 18 20 Blood Pressure 166/92 H 188/104 H 161/97 H Pulse Oximetry 96 100 10/09/18 20:00 10/09/18 20:30 10/09/18 21:00 Temperature Pulse Rate 75 85 72 Respiratory Rate 18 18 18 Blood Pressure 163/87 H 166/106 H 140/98 H Pulse Oximetry 95 96 95 10/09/18 21:30 10/09/18 22:00 10/09/18 23:00 Temperature 96.6 F L Pulse Rate 77 80 89 Respiratory Rate 18 18 20 Blood Pressure 173/95 H 146/76 H 155/95 H Pulse Oximetry 96 95 97 10/10/18 00:02 10/10/18 04:00 10/10/18 04:02 Temperature 97.6 F Pulse Rate 93 H 86 100 H Respiratory Rate 20 Blood Pressure 152/67 H Pulse Oximetry 100 10/10/18 08:00 10/10/18 12:00 Temperature 97.7 F 100.3 F H Pulse Rate 90 82 Respiratory Rate 18 18 Blood Pressure 147/93 H 112/60 Pulse Oximetry 96 95 Intake & Output 10/09/18 10/10/18 10/10/18 18:59 06:59 18:59 Intake Total 852 / 852 291 / 291 Balance 852 / 852 291 / 291 Weight 89.2 kg Intake: IV 852 / 852 291 / 291 Heparin/D5W 25,000 U/250 mL 25, 93 / 93 000 unit In 250 ml @ Per Protocol IV.CONT TITRATE PRN Rx #:[id number] NS Inj 1,000 ML @ 100 mls/hr IV 709 / 709 291 / 291 .CONT .Q10H ANJU Rx#:[id number] Ancef 2 GM Premix Inj 2 gm In 50 / 50 50 ml @ 100 mls/hr IV.SIG ONCE ONE Rx#:[id number] Oral 0 / 0 Other: # Voids 3 # Urine Diapers 1 Weight On Admission 90.2 kg Narrative: GENERAL: Well-developed, well-nourished, in no acute distress. alert and orientated to person, place, city, state. Not the year HEENT: Head is normocephalic without any lesions or masses noted. Facial features are symmetric. Eyes: Pupils equal round reactive to light. Extraocular muscles are intact. Conjunctivae were clear. Oropharyngeal: Pharynx without any erythema edema. Tongue is midline without deviation. Buccal mucosa is moist without any masses or lesions NECK: Supple without any masses. Trachea midline no deviation. No JVD, no bruits are appreciated CARDIAC: Regular rhythm, regular rate. S1/S2 are heard. No murmurs gallops or rubs. LUNGS: Clear to auscultation bilaterally. No wheeze, rhonchi or rales. No use of accessory muscles on inspiration or expiration. ABDOMEN: Soft, nontender. Nondistended. Bowel sounds heard in all 4 quadrants. No organomegaly or masses. Negative rebound, negative guarding EXTREMITIES: No edema, pulses are equal bilaterally. No cyanosis or clubbing NEUROLOGY: Mood and affect appear appropriate. Cranial nerves II through XII grossly intact. Muscle strength 5/5 in upper and lower extremities bilaterally. Deep tendon reflexes are 2+ in upper and lower extremities bilaterally. Results - Labs CBC & Chem 7: 10/10/18 09:25 10/10/18 09:25 Labs: Laboratory Results - last 24 hr 10/09/18 10/09/18 10/09/18 19:15 19:15 19:15 CBC w Diff Auto diff final WBC 13.5 H RBC 5.46 Hgb 15.3 Hct 47.3 MCV 86.8 MCH 28.0 MCHC 32.3 RDW 15.4 Plt Count 113 L MPV 7.9 Neut % (Auto) 86.9 H Lymph % (Auto) 4.9 L Sac % (Auto) 7.8 Eos % (Auto) 0.2 Baso % (Auto) 0.2 Neut # (Auto) 11.7 H Lymph # (Auto) 0.7 L Sac # (Auto) 1.1 H Eos # (Auto) 0.0 Baso # (Auto) 0.0 WBC Differential . Differential Comment . PT 12.7 H INR 1.3 APTT 31.1 Fibrinogen Sodium Potassium Chloride Carbon Dioxide Anion Gap BUN Creatinine Estimated GFR POC Glucose Random Glucose Calcium Total Bilirubin AST ALT Alkaline Phosphatase Total Protein Albumin Triglycerides Cholesterol LDL Cholesterol, Calc HDL Cholesterol Cholesterol/HDL Ratio Urine Color Urine Clarity Urine pH Ur Specific [place] Urine Protein Urine Glucose (UA) Urine Ketones Urine Occult Blood Urine Nitrate Urine Bilirubin Urine Urobilinogen Ur Leukocyte Esterase Urine RBC Urine WBC Ur Squamous Epith Cells Micro UA Comment Ur Microscopic Review Urine Culture Comments Urine Opiates Screen Ur Barbiturates Screen Ur Amphetamines Screen U Benzodiazepines Scrn Urine Cocaine Screen U Cannabinoids Screen Blood Type A Positive Antibody Screen Negative 10/09/18 10/09/18 10/09/18 19:15 19:15 19:15 CBC w Diff WBC RBC Hgb Hct MCV MCH MCHC RDW Plt Count MPV Neut % (Auto) Lymph % (Auto) Sac % (Auto) Eos % (Auto) Baso % (Auto) Neut # (Auto) Lymph # (Auto) Sac # (Auto) Eos # (Auto) Baso # (Auto) WBC Differential Differential Comment PT INR APTT Fibrinogen 445 H Sodium 137 Potassium 4.3 Chloride 103 Carbon Dioxide 27.7 Anion Gap 6 BUN 28 H Creatinine 1.50 H Estimated GFR 45 L POC Glucose Random Glucose 113 H Calcium 8.7 Total Bilirubin 1.2 H AST 16 ALT 19 Alkaline Phosphatase 86 Total Protein 7.4 Albumin 3.4 Triglycerides 91 Cholesterol 169 LDL Cholesterol, Calc 107 H HDL Cholesterol 44.0 Cholesterol/HDL Ratio 3.84 Urine Color Urine Clarity Urine pH Ur Specific [place] Urine Protein Urine Glucose (UA) Urine Ketones Urine Occult Blood Urine Nitrate Urine Bilirubin Urine Urobilinogen Ur Leukocyte Esterase Urine RBC Urine WBC Ur Squamous Epith Cells Micro UA Comment Ur Microscopic Review Urine Culture Comments Urine Opiates Screen Ur Barbiturates Screen Ur Amphetamines Screen U Benzodiazepines Scrn Urine Cocaine Screen U Cannabinoids Screen Blood Type Antibody Screen 10/09/18 10/09/18 10/09/18 19:37 20:20 20:20 CBC w Diff WBC RBC Hgb Hct MCV MCH MCHC RDW Plt Count MPV Neut % (Auto) Lymph % (Auto) Sac % (Auto) Eos % (Auto) Baso % (Auto) Neut # (Auto) Lymph # (Auto) Sac # (Auto) Eos # (Auto) Baso # (Auto) WBC Differential Differential Comment PT INR APTT Fibrinogen Sodium Potassium Chloride Carbon Dioxide Anion Gap BUN Creatinine Estimated GFR POC Glucose 97 Random Glucose Calcium Total Bilirubin AST ALT Alkaline Phosphatase Total Protein Albumin Triglycerides Cholesterol LDL Cholesterol, Calc HDL Cholesterol Cholesterol/HDL Ratio Urine Color Yellow Urine Clarity Clear Urine pH 7.0 Ur Specific [place] Less/equal 1.005 Urine Protein Negative Urine Glucose (UA) Negative Urine Ketones Negative Urine Occult Blood Moderate H Urine Nitrate Negative Urine Bilirubin Negative Urine Urobilinogen 2.0 H Ur Leukocyte Esterase Negative Urine RBC 4-15 H Urine WBC 6-8 H Ur Squamous Epith Cells 0-5 Micro UA Comment Culture not ind Ur Microscopic Review Microscopic reviewed Urine Culture Comments Culture not ind Urine Opiates Screen Neg Ur Barbiturates Screen Neg Ur Amphetamines Screen Neg U Benzodiazepines Scrn Neg Urine Cocaine Screen Neg U Cannabinoids Screen Neg Blood Type Antibody Screen 10/10/18 10/10/18 10/10/18 01:50 07:16 09:25 CBC w Diff Auto diff final WBC 13.3 H RBC 5.38 Hgb 14.8 Hct 47.1 MCV 87.5 MCH 27.5 MCHC 31.5 L RDW 15.0 Plt Count 101 L MPV 7.5 Neut % (Auto) 89.2 H Lymph % (Auto) 3.5 L Sac % (Auto) 4.9 Eos % (Auto) 0.1 Baso % (Auto) 2.3 H Neut # (Auto) 11.8 H Lymph # (Auto) 0.5 L Sac # (Auto) 0.7 Eos # (Auto) 0.0 Baso # (Auto) 0.3 H WBC Differential . Differential Comment . PT INR APTT 48.1 H D Fibrinogen Sodium Potassium Chloride Carbon Dioxide Anion Gap BUN Creatinine Estimated GFR POC Glucose 105 Random Glucose Calcium Total Bilirubin AST ALT Alkaline Phosphatase Total Protein Albumin Triglycerides Cholesterol LDL Cholesterol, Calc HDL Cholesterol Cholesterol/HDL Ratio Urine Color Urine Clarity Urine pH Ur Specific [place] Urine Protein Urine Glucose (UA) Urine Ketones Urine Occult Blood Urine Nitrate Urine Bilirubin Urine Urobilinogen Ur Leukocyte Esterase Urine RBC Urine WBC Ur Squamous Epith Cells Micro UA Comment Ur Microscopic Review Urine Culture Comments Urine Opiates Screen Ur Barbiturates Screen Ur Amphetamines Screen U Benzodiazepines Scrn Urine Cocaine Screen U Cannabinoids Screen Blood Type Antibody Screen 10/10/18 10/10/18 09:25 09:25 CBC w Diff WBC RBC Hgb Hct MCV MCH MCHC RDW Plt Count MPV Neut % (Auto) Lymph % (Auto) Sac % (Auto) Eos % (Auto) Baso % (Auto) Neut # (Auto) Lymph # (Auto) Sac # (Auto) Eos # (Auto) Baso # (Auto) WBC Differential Differential Comment PT 13.8 H INR 1.4 APTT 47.5 H Fibrinogen Sodium 140 Potassium 4.4 Chloride 105 Carbon Dioxide 26.8 Anion Gap 8 BUN 21 H Creatinine 1.20 Estimated GFR 58 L POC Glucose Random Glucose 113 H Calcium 8.4 L Total Bilirubin AST ALT Alkaline Phosphatase Total Protein Albumin Triglycerides Cholesterol LDL Cholesterol, Calc HDL Cholesterol Cholesterol/HDL Ratio Urine Color Urine Clarity Urine pH Ur Specific [place] Urine Protein Urine Glucose (UA) Urine Ketones Urine Occult Blood Urine Nitrate Urine Bilirubin Urine Urobilinogen Ur Leukocyte Esterase Urine RBC Urine WBC Ur Squamous Epith Cells Micro UA Comment Ur Microscopic Review Urine Culture Comments Urine Opiates Screen Ur Barbiturates Screen Ur Amphetamines Screen U Benzodiazepines Scrn Urine Cocaine Screen U Cannabinoids Screen Blood Type Antibody Screen - Imaging Impressions Chest X-Ray 10/09/18 19:12 CONCLUSION: Mild apparent scarring and/or atelectasis at the left lung base with no acute cardiopulmonary disease. Head CT 10/09/18 19:12 CONCLUSION: 1. Stable noncontrast head CT with no evidence of hemorrhage or acute infarction. Report was called by [Dr. Dave to Dr. Glover at 1936 hours. ] Head CTA 10/09/18 19:12 CONCLUSION: 1. No large vessel occlusion, particularly in the anterior circulation as questioned. 2. 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 Findings were personally discussed with Dr. Isbell at 7:46 PM. . Neck CTA 10/09/18 19:12 CONCLUSION: 1. No thrombosis, dissection or other acute carotid abnormality. 2. Mild atherosclerosis at both bifurcations. Short segment atherosclerosis and roughly 30% narrowing of the proximal to mid right internal carotid artery. Caprini VTE Risk Assessment Caprini VTE Risk Assessment: Moderate/High Risk (score >= 2) Caprini Risk Assessment Model: Point Value = 1 Point Value = 2 Point Value = 3 Point Value = 5 Age 41-60 Minor surgery BMI > 25 kg/m2 Swollen legs Varicose veins or History of unexplained or recurrent spontaneous Oral contraceptives or hormone replacement Sepsis (< 1 month) Serious lung disease, including pneumonia (< 1 month) Abnormal pulmonary function Acute myocardial infarction Congestive heart failure (< 1 month) History of inflammatory bowel disease Medical patient at bed rest Age 61-74 Arthroscopic surgery Major open surgery (> 45 min) Laparoscopic surgery (> 45 min) Malignancy Confined to bed (> 72 hours) Immobilizing plaster cast Central venous access Age >= 75 History of VTE Family history of VTE Factor V Leiden Prothrombin [id number] Lupus anticoagulant Anticardiolipin antibodies Elevated serum homocysteine Heparin-induced thrombocytopenia Other congenital or acquired thrombophilia Stroke (< 1 month) Elective arthroplasty Hip, pelvis, or leg fracture Acute spinal cord injury (< 1 month) Prophylaxis Regimen: Total Risk Factor Score Risk Level Prophylaxis Regimen 0-1 Low Early ambulation 2 Moderate Order ONE of the following: *Sequential Compression Device (SCD) *Heparin 5000 units SQ BID 3-4 Higher Order ONE of the following medications: *Heparin 5000 units SQ TID *Enoxaparin/Lovenox 40 mg SQ daily (WT < 150 kg, CrCl > 30 mL/min) *Enoxaparin/Lovenox 30 mg SQ daily (WT < 150 kg, CrCl > 10-29 mL/min) *Enoxaparin/Lovenox 30 mg SQ BID (WT < 150 kg, CrCl > 30 mL/min) AND/OR *Sequential Compression Device (SCD) 5 or more Highest Order ONE of the following medications: *Heparin 5000 units SQ TID (Preferred with Epidurals) *Enoxaparin/Lovenox 40 mg SQ daily (WT < 150 kg, CrCl > 30 mL/min) *Enoxaparin/Lovenox 30 mg SQ daily (WT < 150 kg, CrCl > 10-29 mL/min) *Enoxaparin/Lovenox 30 mg SQ BID (WT < 150 kg, CrCl > 30 mL/min) AND *Sequential Compression Device (SCD) Assessment and Plan - Assessment (1) Disequilibrium Code(s): R42 - Dizziness and giddiness Status: Acute (2) Confusion Code(s): R41.0 - Disorientation, unspecified Status: Acute - Plan Neurological symptoms with disequilibrium, confusion. Need to rule out TIA versus CVA -Patient with increased risk factors for developing CVA with being off Coumadin for 4 days prior to having dental procedure and laser eye surgery -Original CT did not indicate any acute abnormality -Awaiting MRI/MRA of the brain -Awaiting echocardiogram -Obtain additional labs B12, folate, sed rate, RPR, TSH, hemoglobin A1c -Lipid panel does indicate LDL 107 -Start Lipitor 20 mg daily -PT/OT/ST evaluation -Neurological consultation Chronic atrial fibrillation, rate controlled -Continue metoprolol -Patient is on Coumadin for anticoagulation which is subtherapeutic secondary to be held for surgical purposes -Patient started on heparin IV with bridging until INR 2.0-3.0 Recent dental surgery -Patient be continued on amoxicillin 500 mg 4 times daily DVT prevention -Patient is on heparin IV Discharge Planning: Case management consulted and patient has been accepted at [facility] when ready for discharge
[2018-10-10 13:38] LABS: Thyroid Stimulating Hormone 1.33 uIU/mL (0.358-3.740)
--- NOTE | 2018-10-10 15:21 | ECHRPT ---
Indication: CVA/TIA CONCLUSIONS Normal left ventricular size. Mild concentric left ventricular hypertrophy. The left ventricular systolic function is normal with an estimated ejection fraction in the range of 55-60%. Trace mitral valve regurgitation. Calcification of the non-coronary cusp. There is trace tricuspid valve regurgitation. BP: / HR: Rhythm: Technical Quality:Fair FINDINGS LEFT VENTRICLE Normal left ventricular size. Mild concentric left ventricular hypertrophy. The left ventricular systolic function is normal with an estimated ejection fraction in the range of 55-60%. RIGHT VENTRICLE Normal right ventricular size and systolic function. LEFT ATRIUM The left atrial size is normal. RIGHT ATRIUM The right atrial size is normal. ATRIAL SEPTUM Normal atrial septal thickness without atrial level shunting by limited color doppler interrogation. AORTA The aortic root and proximal ascending aorta are normal in size on limited imaging. MITRAL VALVE Trace mitral valve regurgitation. AORTIC VALVE Calcification of the non-coronary cusp. TRICUSPID VALVE There is trace tricuspid valve regurgitation. PULMONARY VALVE The pulmonary valve is not well visualized. VESSELS The inferior vena cava is normal in size. PERICARDIUM No pericardial effusion. Eduardo Roberto MD (Electronically Signed) Final Date:10 October 2018 15:19
[2018-10-10] MEDS ORDERED: Dextrose 50% in Water 50 ML Vial IV.PUSH PRN (17:28)
[2018-10-10] MEDS ORDERED: Warfarin Consult Pharmacy 1 EACH OTHER SCH (18:15)
[2018-10-10] MEDS: Heparin Drip 25,000 UNIT/250 ML BAG IV.CONT PRN (18:30)
--- NOTE | 2018-10-10 20:37 | CT ---
EXAM DATE: 10/10/2018 8:32 PM EST AGE/SEX: 78 years / Male INDICATIONS: Acute neurological changes. CLINICAL DATA: This is the patient's initial encounter. Patient reports that signs and symptoms have been present for 1 day and indicates a pain score of 0/10. MEDICAL/SURGICAL HISTORY: Hypertension. Atrial fibrillation. None. RADIATION DOSE: 59.50 CTDI (mGy) COMPARISON: [facility], CT HEAD W/O CONTRAST, 10/09/2018. [facility], CT BRAIN W/O CONTRAST, 12/31/2017. . TECHNIQUE: CT of the head without contrast. Using automated exposure control and adjustment of the mA and/or kV according to patient size, radiation dose was kept as low as reasonably achievable to ob tain optimal diagnostic quality images. DICOM format image data is available electronically for revi ew and comparison. FINDINGS: Cerebrum: Mild ventriculomegaly unchanged. No evidence of midline shift, mass lesion, hem orrhage or acute infarction. No extraaxial fluid collections are seen. Chronic low-attenuation again seen in the periventricular white matter. Posterior Fossa: The cerebellum and brainstem are intact. The 4th ventricle is midline. The cerebe llopontine angle is unremarkable. Extracranial: The visualized portion of the orbits is intact. Skull: The calvaria is intact. No evidence of skull fracture. CONCLUSION: 1. No acute intracranial abnormality demonstrated. 2. Unchanged mild ventriculomegaly. 3. Mild chronic white matter changes are again noted. . Electronically signed by: Josiah Gibson MD 10/10/2018 8:36 PM EST
[2018-10-10] MEDS: Insulin NovoLOG Aspart Correctional Sugar Inj SQ SCH (22:39)
--- NOTE | 2018-10-10 23:15 | ECG ---
Date Performed: 10/09/2018 Time Performed: 19:42:48 PTAGE: 78 years EKG: ATRIAL FIBRILLATION LEFT BUNDLE BRANCH BLOCK MINIMAL VOLTAGE CRITERIA FOR LVH, CONSIDER NOR MAL VARIANT ABNORMAL ECG PREVIOUS TRACING : 12/31/2017 12.50 Since the previous tracing, no significant change noted DOCTOR: Damon Topete Interpretating Date/Time 10/10/2018 23:14:49
[2018-10-11] MEDS: Sod Chloride 0.9% Inj 1,000 ML IV.CONT SCH ×2 (06:06→16:22)
[2018-10-11 06:39] LABS: Hematocrit 39.8 % (39.0-51.0); Hemoglobin 13.3 gm/dL (13.0-17.0); Mean Corpuscular HGB Conc 33.3 % (32.0-36.0); Mean Corpuscular Hemoglobin 29.1 pg (27.0-34.0); Mean Corpuscular Volume 87.3 fL (80.0-100.0); Mean Platelet Volume 7.2 fL (7.0-11.0); Platelet Count 86 th/mm3 (150-450); Red Blood Count 4.56 mil/mm3 (4.50-5.90)
[2018-10-11 06:52] LABS: INR 1.5 Ratio; Prothrombin Time 15.4 sec (9.8-11.6)
[2018-10-11] MEDS: Insulin NovoLOG Aspart Correctional Sugar Inj SQ SCH ×4 (07:43→22:18)
--- NOTE | 2018-10-11 07:47 | P.PNIM ---
Subjective Interval history: 78-year-old male who is seen examined today for follow-up on possible CVA. Patient is sitting in a chair stating that he is very weak. No unilateral weakness. Unable to have MRI yesterday due to unable to stay still. Will need to have MRI done today with Ativan to complete evaluation. Vital signs are stable. Patient remains afebrile. Physical Exam Vital signs: Vital Signs 10/10/18 08:00 10/10/18 12:00 10/10/18 16:00 Temperature 97.7 F 100.3 F H 97.3 F L Pulse Rate 84 82 82 Respiratory Rate 18 18 18 Blood Pressure 147/93 H 112/60 144/69 H Pulse Oximetry 95 95 97 10/10/18 20:00 10/11/18 00:00 10/11/18 04:00 Temperature 97.1 F L 98.1 F 98.5 F Pulse Rate 72 84 90 Respiratory Rate 21 20 20 Blood Pressure 144/86 H 137/75 111/62 Pulse Oximetry 95 91 L 93 L Intake & Output 10/10/18 10/11/18 10/11/18 18:59 06:59 18:59 Intake Total 1448 / 1448 1000 / 1000 Balance 1448 / 1448 1000 / 1000 Intake: IV 1448 / 1448 1000 / 1000 Heparin/D5W 25,000 U/250 mL 25, 157 / 157 000 unit In 250 ml @ Per Protocol IV.CONT TITRATE PRN Rx #:[id number] NS Inj 1,000 ML @ 100 mls/hr IV 1291 / 1291 1000 / 1000 .CONT .Q10H ANJU Rx#:[id number] Other: # Voids 3 # Bowel Movements 1 Narrative: GENERAL: Well-developed, well-nourished, in no acute distress. alert and orientated x3 HEENT: Head is normocephalic without any lesions or masses noted. Facial features are symmetric. Eyes: Extraocular muscles are intact. Conjunctivae were clear. NECK: Supple without any masses. Trachea midline no deviation. No JVD, CARDIAC: Regular rhythm, regular rate. S1/S2 are heard. No murmurs gallops or rubs. LUNGS: Clear to auscultation bilaterally. No wheeze, rhonchi or rales. No use of accessory muscles on inspiration or expiration. ABDOMEN: Soft, nontender. Nondistended. Bowel sounds heard in all 4 quadrants. No organomegaly or masses. Negative rebound, negative guarding EXTREMITIES: No edema, pulses are equal bilaterally. No cyanosis or clubbing NEUROLOGY: Mood and affect appear appropriate. Cranial nerves II through XII grossly intact. Moving all extremities, speech is clear Results - Labs CBC & Chem 7: 10/11/18 06:22 10/10/18 09:25 Laboratory Results - last 24 hr 10/10/18 10/10/18 10/10/18 07:16 09:25 09:25 CBC w Diff Auto diff final WBC 13.3 H RBC 5.38 Hgb 14.8 Hct 47.1 MCV 87.5 MCH 27.5 MCHC 31.5 L RDW 15.0 Plt Count 101 L MPV 7.5 Neut % (Auto) 89.2 H Lymph % (Auto) 3.5 L [place] % (Auto) 4.9 Eos % (Auto) 0.1 Baso % (Auto) 2.3 H Neut # (Auto) 11.8 H Lymph # (Auto) 0.5 L [place] # (Auto) 0.7 Eos # (Auto) 0.0 Baso # (Auto) 0.3 H WBC Differential . Differential Comment . ESR PT INR APTT Sodium 140 Potassium 4.4 Chloride 105 Carbon Dioxide 26.8 Anion Gap 8 BUN 21 H Creatinine 1.20 Estimated GFR 58 L POC Glucose 105 Random Glucose 113 H Calcium 8.4 L Vitamin B12 Folate TSH 10/10/18 10/10/18 10/10/18 09:25 09:25 09:25 CBC w Diff WBC RBC Hgb Hct MCV MCH MCHC RDW Plt Count MPV Neut % (Auto) Lymph % (Auto) [place] % (Auto) Eos % (Auto) Baso % (Auto) Neut # (Auto) Lymph # (Auto) [place] # (Auto) Eos # (Auto) Baso # (Auto) WBC Differential Differential Comment ESR 18 PT 13.8 H INR 1.4 APTT 47.5 H Sodium Potassium Chloride Carbon Dioxide Anion Gap BUN Creatinine Estimated GFR POC Glucose Random Glucose Calcium Vitamin B12 244 Folate 16.0 TSH 1.330 10/10/18 10/10/18 10/11/18 17:13 22:37 06:22 CBC w Diff WBC RBC Hgb Hct MCV MCH MCHC RDW Plt Count MPV Neut % (Auto) Lymph % (Auto) [place] % (Auto) Eos % (Auto) Baso % (Auto) Neut # (Auto) Lymph # (Auto) [place] # (Auto) Eos # (Auto) Baso # (Auto) WBC Differential Differential Comment ESR PT 15.4 H INR 1.5 APTT Sodium Potassium Chloride Carbon Dioxide Anion Gap BUN Creatinine Estimated GFR POC Glucose 265 H 106 Random Glucose Calcium Vitamin B12 Folate TSH 10/11/18 10/11/18 10/11/18 06:22 06:22 07:10 CBC w Diff WBC 11.0 RBC 4.56 Hgb 13.3 Hct 39.8 MCV 87.3 MCH 29.1 MCHC 33.3 RDW 15.0 Plt Count 86 L MPV 7.2 Neut % (Auto) Lymph % (Auto) [place] % (Auto) Eos % (Auto) Baso % (Auto) Neut # (Auto) Lymph # (Auto) [place] # (Auto) Eos # (Auto) Baso # (Auto) WBC Differential Differential Comment ESR PT INR APTT 48.5 H Sodium Potassium Chloride Carbon Dioxide Anion Gap BUN Creatinine Estimated GFR POC Glucose 89 Random Glucose Calcium Vitamin B12 Folate TSH Microbiology 10/09/18 20:20 Random Urine Urine Culture - Preliminary <10,000 cfu/mL gram negative rods - no further workup - Imaging Impressions Head CT 10/10/18 18:15 CONCLUSION: 1. No acute intracranial abnormality demonstrated. 2. Unchanged mild ventriculomegaly. 3. Mild chronic white matter changes are again noted. . - Procedures ECHOCARDIOGRAM CONCLUSIONS Normal left ventricular size. Mild concentric left ventricular hypertrophy. The left ventricular systolic function is normal with an estimated ejection fraction in the range of 55-60%. Trace mitral valve regurgitation. Calcification of the non-coronary cusp. There is trace tricuspid valve regurgitation. Assessment and Plan - Assessment (1) Disequilibrium Code(s): R42 - Dizziness and giddiness Status: Acute (2) Confusion Code(s): R41.0 - Disorientation, unspecified Status: Acute - Plan Neurological symptoms with disequilibrium, confusion. Need to rule out TIA versus CVA -Patient with increased risk factors for developing CVA with being off Coumadin for 4 days prior to having dental procedure and laser eye surgery -Family indicated the patient was having worsening neurological symptoms. Stat CT of the brain was ordered without any acute abnormality -Original CT did not indicate any acute abnormality -Awaiting MRI of the brain -Echocardiogram please see results -additional labs were performed with low B12. folate, sed rate,TSH, RPR were normal. awaiting hemoglobin A1c -Lipid panel does indicate LDL 107 -Continue Lipitor 20 mg daily -PT/OT/ST evaluation -Neurological consultation was performed B12 deficiency. -Patient was given B12 1000 mcg IM x1 and started on oral B12 supplementation -We will check methylmalonic acid, homocystine level Chronic atrial fibrillation, rate controlled -Continue metoprolol -Patient is on Coumadin for anticoagulation which is subtherapeutic secondary to be held for surgical purposes -Pharmacy consulted for warfarin management -Patient started on heparin IV with bridging until INR 2.0-3.0 Recent dental surgery -Patient be continued on amoxicillin 500 mg 4 times daily DVT prevention -Patient is on heparin IV Discharge Planning: Case management consulted and patient has been accepted at [facility] when ready for discharge
--- NOTE | 2018-10-11 11:30 | MR ---
EXAM DATE: 10/11/2018 11:25 AM EST AGE/SEX: 78 years / Male INDICATIONS: Altered mental status. CLINICAL DATA: This is the patient's subsequent encounter. Patient reports that signs and symptoms h ave been present for 2 days and indicates a pain score of 0/10. MEDICAL/SURGICAL HISTORY: Hypertension. Appendectomy. hip replacement, hernia, rotator cuff, anders wel removal COMPARISON: [facility], CT HEAD W/O CONTRAST, 10/10/2018. . TECHNIQUE: Multiplanar, multisequence examination of the brain was performed without contrast. FINDINGS: Cerebrum: The ventricles are symmetric and mildly prominent. No evidence of midline shift, mass les ion, hemorrhage or acute infarction. No extraaxial fluid collections are seen. The pituitary gland and suprasellar cistern are normal in configuration. White Matter: Symmetric benign-appearing periventricular white matter signal changes. Posterior Fossa: The cerebellum and brainstem are intact. The 4th ventricle is midline. The cerebel lopontine angle is unremarkable. The cerebellar tonsils are normal in position. Diffusion Imaging: No focal areas of restricted diffusion are seen. No evidence of acute infarction . Extracranial: The visualized portions of the orbits and paranasal sinuses are unremarkable. CONCLUSION: Symmetric ventricular prominence in chronic appearing white matter signal changes. Electronically signed by: Josiah Velasquez MD 10/11/2018 11:28 AM EST
[2018-10-11 12:57] LABS: Hemoglobin A1c 5.5 % (4.3-6.0)
[2018-10-11] MEDS: Acetaminophen 325 MG Tablet PO PRN ×2 (14:04→20:23)
[2018-10-11] MEDS: Heparin Drip 25,000 UNIT/250 ML BAG IV.CONT PRN (16:27)
[2018-10-12] MEDS: Sod Chloride 0.9% Inj 1,000 ML IV.CONT SCH ×4 (00:55→21:06)
[2018-10-12 07:39] LABS: Hematocrit 41.2 % (39.0-51.0); Hemoglobin 13.2 gm/dL (13.0-17.0); Mean Corpuscular HGB Conc 32.1 % (32.0-36.0); Mean Corpuscular Hemoglobin 28.2 pg (27.0-34.0); Mean Corpuscular Volume 87.6 fL (80.0-100.0); Mean Platelet Volume 7.9 fL (7.0-11.0); Platelet Count 99 th/mm3 (150-450); Red Cell Distribution Width 15.3 % (11.6-17.2); White Blood Count 8.1 th/mm3 (4.0-11.0)
[2018-10-12 07:43] LABS: Activated Partial Thrombo Time 47.8 sec (23.4-31.7); INR 1.5 Ratio; Prothrombin Time 15.4 sec (9.8-11.6)
--- NOTE | 2018-10-12 09:00 | P.PNIM ---
Subjective Interval history: 78-year-old male who is seen examined today for follow-up on increased confusion, neurological symptoms. Family indicating that patient is having episodes of possible hallucinations. I did discuss with the family that due to him having some underlying dementia this could be a normal variant with being out of his normal environment as well as use of benzodiazepine yesterday. They do understand. We will continue monitor the patient closely. Awaiting [employer] authorization for discharge to rehab. Patient blood pressure is mildly elevated. Will address. Patient remains afebrile. Physical Exam Vital signs: Vital Signs 10/11/18 12:00 10/11/18 13:47 10/11/18 15:52 Temperature 96.7 F L 100.2 F H 99.5 F Pulse Rate 88 89 Respiratory Rate 18 18 Blood Pressure 163/83 H 115/63 Pulse Oximetry 91 L 95 10/11/18 16:00 10/11/18 20:00 10/11/18 22:16 Temperature 97.4 F L Pulse Rate 74 82 Respiratory Rate 18 18 Blood Pressure 133/83 Pulse Oximetry 96 10/12/18 00:00 10/12/18 04:00 Temperature 97.2 F L 98.5 F Pulse Rate 87 94 H Respiratory Rate 18 18 Blood Pressure 163/90 H 168/95 H Pulse Oximetry 93 L 93 L Intake & Output 10/11/18 10/12/18 10/12/18 18:59 06:59 18:59 Intake Total 1250 / 1250 1240 / 1240 Output Total 150 / 150 Balance 1250 / 1250 1090 / 1090 Weight 91.7 kg Intake: IV 1250 / 1250 1000 / 1000 Heparin/D5W 25,000 U/250 mL 25, 250 / 250 000 unit In 250 ml @ Per Protocol IV.CONT TITRATE PRN Rx #:[id number] NS Inj 1,000 ML @ 100 mls/hr IV 1000 / 1000 1000 / 1000 .CONT .Q10H ANJU Rx#:[id number] Oral 240 / 240 Output: Urine 150 / 150 Other: # Voids 2 Date of Last Bowel Movement 10/10/18 Narrative: GENERAL: Well-developed, well-nourished, in no acute distress. alert and orientated to person, place, address. Not to year HEENT: Head is normocephalic without any lesions or masses noted. Facial features are symmetric. Eyes: Extraocular muscles are intact. Conjunctivae were clear. NECK: Supple without any masses. Trachea midline no deviation. No JVD, CARDIAC: Regular rhythm, regular rate. S1/S2 are heard. No murmurs gallops or rubs. LUNGS: Clear to auscultation bilaterally. No wheeze, rhonchi or rales. No use of accessory muscles on inspiration or expiration. ABDOMEN: Soft, nontender. Nondistended. Bowel sounds heard in all 4 quadrants. No organomegaly or masses. Negative rebound, negative guarding EXTREMITIES: No edema, pulses are equal bilaterally. No cyanosis or clubbing NEUROLOGY: Mood and affect appear appropriate. Cranial nerves II through XII grossly intact. Moving all extremities, speech is clear Results - Labs CBC & Chem 7: 10/12/18 07:00 10/10/18 09:25 Laboratory Results - last 24 hr 10/10/18 10/10/18 10/11/18 09:25 09:25 11:23 WBC RBC Hgb Hct MCV MCH MCHC RDW Plt Count MPV PT INR APTT POC Glucose 138 H Hemoglobin A1c 5.5 RPR Nonreactive 10/11/18 10/11/18 10/12/18 16:10 22:01 07:00 WBC RBC Hgb Hct MCV MCH MCHC RDW Plt Count MPV PT 15.4 H INR 1.5 APTT 47.8 H POC Glucose 185 H 118 H Hemoglobin A1c RPR 10/12/18 10/12/18 07:00 07:46 WBC 8.1 RBC 4.70 Hgb 13.2 Hct 41.2 MCV 87.6 MCH 28.2 MCHC 32.1 RDW 15.3 Plt Count 99 L MPV 7.9 PT INR APTT POC Glucose 92 Hemoglobin A1c RPR Microbiology 10/09/18 20:20 Random Urine Urine Culture - Final <10,000 cfu/mL gram negative rods - no further workup - Imaging Impressions Head MRI 10/11/18 00:00 CONCLUSION: Symmetric ventricular prominence in chronic appearing white matter signal changes. - Procedures ECHOCARDIOGRAM CONCLUSIONS Normal left ventricular size. Mild concentric left ventricular hypertrophy. The left ventricular systolic function is normal with an estimated ejection fraction in the range of 55-60%. Trace mitral valve regurgitation. Calcification of the non-coronary cusp. There is trace tricuspid valve regurgitation. Assessment and Plan - Assessment (1) Disequilibrium Code(s): R42 - Dizziness and giddiness Status: Acute (2) Confusion Code(s): R41.0 - Disorientation, unspecified Status: Acute - Plan Neurological symptoms with disequilibrium, confusion. Possible TIA -Patient with increased risk factors for developing CVA with being off Coumadin for 4 days prior to having dental procedure and laser eye surgery -Family indicated the patient was having worsening neurological symptoms. Stat CT of the brain was ordered without any acute abnormality -Original CT did not indicate any acute abnormality -MRI of the brain did not indicate any acute abnormality or stroke -Echocardiogram please see results -additional labs were performed with low B12. folate, sed rate,TSH, RPR, hemoglobin A1c were normal. -Lipid panel does indicate LDL 107 -Continue Lipitor 20 mg daily -PT/OT/ST evaluation -Neurological consultation was performed B12 deficiency. -Patient was given B12 1000 mcg IM x1 and started on oral B12 supplementation -We will check methylmalonic acid, homocystine level Chronic atrial fibrillation, rate controlled -Continue metoprolol -Patient is on Coumadin for anticoagulation which is subtherapeutic secondary to be held for surgical purposes -Pharmacy consulted for warfarin management -Patient started on heparin IV with bridging until INR 2.0-3.0 Recent dental surgery -Patient be continued on amoxicillin 500 mg 4 times daily DVT prevention -Patient is on heparin IV Discharge Planning: Case management consulted for rehab placement, have been waiting on [employer] authorization for placement.
[2018-10-12] MEDS: Insulin NovoLOG Aspart Correctional Sugar Inj SQ SCH (09:43)
[2018-10-12] MEDS: Acetaminophen 325 MG Tablet PO PRN (12:07)
[2018-10-12] MEDS: Heparin Drip 25,000 UNIT/250 ML BAG IV.CONT PRN (16:11)
[2018-10-12 23:53] LABS: Homocysteine (Cardiovascular) 9.3 umol/L (<11.4)
[2018-10-13] MEDS ORDERED: Melatonin 5 MG Tablet PO ONE (00:36)
[2018-10-13] MEDS: Sod Chloride 0.9% Inj 1,000 ML IV.CONT SCH (07:20)
--- NOTE | 2018-10-13 08:08 | P.PNIM ---
Subjective Interval history: 78-year-old male who is seen examined today for follow-up on confusion, TIA. Patient appears to be doing better. Appears to be more alert today. Still not orientated to year. Vital signs with blood pressure mildly elevated. Patient remains afebrile. Physical Exam Vital signs: Vital Signs 10/12/18 12:00 10/12/18 16:00 10/12/18 20:00 Temperature 98.7 F 98.8 F 98.3 F Pulse Rate 83 86 90 Respiratory Rate 20 20 20 Blood Pressure 156/86 H 131/79 165/88 H Pulse Oximetry 96 96 93 L 10/13/18 00:00 10/13/18 04:00 Temperature 96.9 F L 97.6 F Pulse Rate 87 86 Respiratory Rate 20 18 Blood Pressure 167/97 H 168/95 H Pulse Oximetry 94 L 95 Intake & Output 10/12/18 10/13/18 10/13/18 18:59 06:59 18:59 Intake Total 2350 / 2350 1360 / 1360 1000 / 1000 Balance 2350 / 2350 1360 / 1360 1000 / 1000 Weight 91.6 kg Intake: IV 2250 / 2250 1000 / 1000 1000 / 1000 Heparin/D5W 25,000 U/250 mL 25, 250 / 250 000 unit In 250 ml @ Per Protocol IV.CONT TITRATE PRN Rx #:[id number] NS Inj 1,000 ML @ 100 mls/hr IV 2000 / 2000 1000 / 1000 1000 / 1000 .CONT .Q10H ANJU Rx#:[id number] Oral 100 / 100 360 / 360 Other: # Voids 3 3 # Incontinent Voids 1 Narrative: GENERAL: Well-developed, well-nourished, in no acute distress. alert and orientated to person, place, address. Not to year HEENT: Head is normocephalic without any lesions or masses noted. Facial features are symmetric. Eyes: Extraocular muscles are intact. Conjunctivae were clear. NECK: Supple without any masses. Trachea midline no deviation. No JVD, CARDIAC: Regular rhythm, regular rate. S1/S2 are heard. No murmurs gallops or rubs. LUNGS: Clear to auscultation bilaterally. No wheeze, rhonchi or rales. No use of accessory muscles on inspiration or expiration. ABDOMEN: Soft, nontender. Nondistended. Bowel sounds heard in all 4 quadrants. No organomegaly or masses. Negative rebound, negative guarding EXTREMITIES: No edema, pulses are equal bilaterally. No cyanosis or clubbing NEUROLOGY: Mood and affect appear appropriate. Cranial nerves II through XII grossly intact. Moving all extremities, speech is clear Results - Labs CBC & Chem 7: 10/12/18 07:00 10/10/18 09:25 Laboratory Results - last 24 hr 10/11/18 10/13/18 06:22 06:25 APTT 54.2 H Homocysteine Cardiovas 9.3 - Procedures ECHOCARDIOGRAM CONCLUSIONS Normal left ventricular size. Mild concentric left ventricular hypertrophy. The left ventricular systolic function is normal with an estimated ejection fraction in the range of 55-60%. Trace mitral valve regurgitation. Calcification of the non-coronary cusp. There is trace tricuspid valve regurgitation. Assessment and Plan - Assessment (1) Disequilibrium Code(s): R42 - Dizziness and giddiness Status: Acute (2) Confusion Code(s): R41.0 - Disorientation, unspecified Status: Acute - Plan Neurological symptoms with disequilibrium, confusion. Possible TIA -Patient with increased risk factors for developing CVA with being off Coumadin for 4 days prior to having dental procedure and laser eye surgery -Family indicated the patient was having worsening neurological symptoms. Stat CT of the brain was ordered without any acute abnormality -Original CT did not indicate any acute abnormality -MRI of the brain did not indicate any acute abnormality or stroke -Echocardiogram please see results -additional labs were performed with low B12. folate, sed rate,TSH, RPR, hemoglobin A1c were normal. -Lipid panel does indicate LDL 107 -Continue Lipitor 20 mg daily -PT/OT/ST evaluation -Neurological consultation was performed B12 deficiency. -Patient was given B12 1000 mcg IM x1 and started on oral B12 supplementation -Awaiting methylmalonic acid -Homocystine level was normal Chronic atrial fibrillation, rate controlled -Continue metoprolol -Patient is on Coumadin for anticoagulation which is subtherapeutic secondary to be held for surgical purposes -Pharmacy consulted for warfarin management -Patient started on heparin IV with bridging until INR 2.0-3.0 Recent dental surgery -Continue amoxicillin for 5 days DVT prevention -Patient is on heparin IV Discharge Planning: Case management consulted for rehab placement, have been waiting on [employer] authorization for placement.
[2018-10-13 08:19] LABS: INR 1.7 Ratio
[2018-10-13] MEDS: Heparin Drip 25,000 UNIT/250 ML BAG IV.CONT PRN (14:21)
[2018-10-13] MEDS: traZODone 50 MG Tablet PO SCH (21:17)
[2018-10-14 05:55] LABS: INR 2.2 Ratio; Prothrombin Time 22.7 sec (9.8-11.6)
--- NOTE | 2018-10-14 09:22 | P.DS ---
Date of admission: 10/09/18 21:22 Primary care physician: Cynthia Knox MD Attending physician on discharge: Sameer Lazo Anticipated date of discharge: 10/14/18 Brief History from admission: 78-year-old male with known history of chronic atrial fibrillation, hypertension, hyperlipidemia who presented to the emergency department because of worsening neurological symptoms. Patient was laying in bed quite comfortably. He did answer questions appropriately when questioned. However most information was taken from at bedside. She indicates that over the last 6 months [facility] has [facility] neurological symptoms of disequilibrium, difficulty with ambulation, increased confusion. She indicates that he has been taking the hospital multiple times for these symptoms and most the time he is found to have dehydration and he does go back to his baseline once he is hydrated. Over the last 6 months he is progressively getting worse. The patient was scheduled to have dental surgery as well as laser eye surgery done this week and he had stopped taking his Coumadin on Sunday. He did go have oral surgery done on Sunday. He went to a retinal specialist and during that exam they could not do the surgery because he could not focus appropriately. They did go [facility] yesterday and when he got home he does appear to be more lethargic and he laid down for nap. When he got up he had difficulty with being able to sit down in order to use the toilet. Because of his worsening symptoms of difficulty in walking, increased confusion, could not focus at the eye surgery the patient's brought him to the hospital for further evaluation. Patient had workup done in emergency department and recommended admission to rule out any acute neurological event. Upon talking the patient he does peer to be a little slow with responses. Memory does have some mild issues over the last 6 weeks he has had a significant decrease in his mentation with increased confusion. They deny any difficulty with eating or swallowing food. No recurrent falling. No unilateral weakness. No paresthesia, numbness. DS: Diagnosis - Discharge Diagnosis (1) Disequilibrium Status: Acute (2) Confusion Status: Acute DS: Summary Hospital Course: 78-year-old male with known history of underlying dementia, hypertension who originally presented the hospital because of worsening neurological symptoms. Family was concerned and came to the hospital for evaluation. Patient was admitted to hospital with full neurological workup to rule out CVA. Patient had CT of the brain which was unremarkable, MRI of the brain which was unremarkable, CTA of the head and neck which was unremarkable. During the stay the patient did have worsening of his neurological symptoms per family and repeat CT was done which was unremarkable. Patient did have echocardiogram done please see results. Patient did undergo PT/ST/OT evaluations and it was indicated the patient have a regular diet and recommending patient continue treatment at rehab facility. During the patient' s stay he did have change in his sleeping habits in which he would be awake during the night and then sleep all day. Patient was given melatonin without any significant relief. Patient was started on trazodone and apparently had much better sleep last evening. Patient was evaluated by neurologist who indicated that his workup is unremarkable patient can be discharged to rehab facility. They recommended that the patient's INR be between 2.0-3.0. Patient was on heparin IV and continue treatment until INR is 2.2. Patient was clinically stable and plan to discharge to inpatient rehab, however awaiting authorization for placement. Patient clinically stable. During the patients stay in the hospital awaking authorization from [employer]. patient has deconditioned to the point that he cannot do anything fo himself, His has to feed him, he cannot get out of bed on his own. I had to order physical therapy twice daily and occupational therapy daily to try and maintain what function he has. unfortunately, despite the increase in therapy, he has not maintained function, Patient is going to require inpatient rehab in order to gain back his functionality, long term facility, outpatient rehab is not sufficient for his level of care and treatment. Case managment has already had [facility] evaluate the patient and they recommended and accepted patient to their service once [employer] gives authorization. Will plan discharge to inpatient rehab once authorized by his insurance company. - Time Spent with Patient Total time spent providing and/or coordinating discharge services: Greater than 30 minutes - Quality: Stroke Last date observed well: 10/09/18 Last time observed well: 12:00 - Quality: VTE Deep Vein Thrombosis/Pulmonary Embolism Present on Admission: No Exam Vital signs: Vital Signs 10/13/18 12:00 10/13/18 16:00 10/13/18 20:00 Temperature 98.1 F 99.1 F 98.3 F Pulse Rate 77 72 87 Respiratory Rate 21 20 18 Blood Pressure 188/95 H 158/85 H 166/99 H Pulse Oximetry 97 97 91 L 10/14/18 00:00 10/14/18 04:46 10/14/18 06:20 Temperature 96.2 F L Pulse Rate 85 85 Respiratory Rate 18 Blood Pressure 184/99 H 180/117 H 172/95 H Pulse Oximetry 94 L 10/14/18 08:00 Temperature 97.3 F L Pulse Rate 84 Respiratory Rate 18 Blood Pressure 159/98 H Pulse Oximetry 94 L Intake & Output 10/13/18 10/14/18 10/14/18 18:59 06:59 18:59 Intake Total 1670 / 1670 240 / 240 64 / 64 Output Total 400 / 400 Balance 1670 / 1670 -160 / -160 64 / 64 Weight 95.6 kg Intake: IV 1550 / 1550 / 64 Heparin/D5W 25,000 U/250 mL 25, 250 / 250 64 / 64 000 unit In 250 ml @ Per Protocol IV.CONT TITRATE PRN Rx #:[id number] NS Inj 1,000 ML @ 100 mls/hr IV 1300 / 1300 .CONT .Q10H ANJU Rx#:[id number] Oral 120 / 120 240 / 240 Output: Urine 400 / 400 Other: # Voids 2 # Urine Diapers 2 Narrative: GENERAL: Well-developed, well-nourished, in no acute distress. alert and orientated to person, place, address. Not to year HEENT: Head is normocephalic without any lesions or masses noted. Facial features are symmetric. Eyes: Extraocular muscles are intact. Conjunctivae were clear. NECK: Supple without any masses. Trachea midline no deviation. No JVD, CARDIAC: Regular rhythm, regular rate. S1/S2 are heard. No murmurs gallops or rubs. LUNGS: Clear to auscultation bilaterally. No wheeze, rhonchi or rales. No use of accessory muscles on inspiration or expiration. ABDOMEN: Soft, nontender. Nondistended. Bowel sounds heard in all 4 quadrants. No organomegaly or masses. Negative rebound, negative guarding EXTREMITIES: No edema, pulses are equal bilaterally. No cyanosis or clubbing NEUROLOGY: Mood and affect appear appropriate. Cranial nerves II through XII grossly intact. Moving all extremities, speech is clear Results Procedures completed during hospitalization: ECHOCARDIOGRAM CONCLUSIONS Normal left ventricular size. Mild concentric left ventricular hypertrophy. The left ventricular systolic function is normal with an estimated ejection fraction in the range of 55-60%. Trace mitral valve regurgitation. Calcification of the non-coronary cusp. There is trace tricuspid valve regurgitation. Labs on day of discharge: Labs from last 24 hours 10/14/18 05:15 PT 22.7 H INR 2.2 - Impressions ITS Impressions Chest X-Ray 10/09/18 19:12 CONCLUSION: Mild apparent scarring and/or atelectasis at the left lung base with no acute cardiopulmonary disease. Head CTA 10/09/18 19:12 CONCLUSION: 1. No large vessel occlusion, particularly in the anterior circulation as questioned. 2. 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 Findings were personally discussed with Dr. Isbell at 7:46 PM. . Neck CTA 10/09/18 19:12 CONCLUSION: 1. No thrombosis, dissection or other acute carotid abnormality. 2. Mild atherosclerosis at both bifurcations. Short segment atherosclerosis and roughly 30% narrowing of the proximal to mid right internal carotid artery. Head CT 10/10/18 18:15 CONCLUSION: 1. No acute intracranial abnormality demonstrated. 2. Unchanged mild ventriculomegaly. 3. Mild chronic white matter changes are again noted. . Head MRI 10/11/18 00:00 CONCLUSION: Symmetric ventricular prominence in chronic appearing white matter signal changes. Discharge Plan - Discharge Disposition Patient Disposition: [facility] Rehab Inpatient - Discharge Condition Condition: Stable - Discharge Order Discharge Orders: Discharge Order (Routine); Ordered 10/14/18 Ordered By: Barrett Grayson - Discharge Details Anticipated Discharge Date: 10/14/18 Discharge Comment: Okay to discharge to inpatient rehab once arrangements made by case management - Physicians Team Primary Care Provider: Cynthia Knox Attending Provider: Sameer Lazo Other Providers: Donal Doll MD ; Jamal Berry
[2018-10-14] MEDS: traZODone 50 MG Tablet PO SCH (21:46)
[2018-10-15 05:18] LABS: INR 2.6 Ratio; Prothrombin Time 26.2 sec (9.8-11.6)
[2018-10-15 09:08] LABS: Methylmalonic Acid 0.38 nmol/mL (<=0.40)
--- NOTE | 2018-10-15 14:43 | P.PNIM ---
Subjective Interval history: No acute complaints endorsed by patients. Physical Exam Vital signs: Last Vital Signs Temp 98.6 F 10/15/18 12:00 Pulse 84 10/15/18 12:00 Resp 16 10/15/18 12:00 BP 112/80 10/15/18 12:00 Pulse Ox 98 10/15/18 12:00 Intake & Output 10/13/18 10/14/18 10/15/18 10/16/18 06:59 06:59 06:59 06:59 Intake Total 3710 / 3710 1910 / 1910 184 / 184 Output Total 400 / 400 300 / 300 Balance 3710 / 3710 1510 / 1510 -116 / -116 Weight 91.6 kg 95.6 kg 94.2 kg gen: nad, conversational heent: eomi cvs: s1/s2 resp: cta gi: soft, non tender, non distended ext: no edema in lower extremity. No calf tenderness. Results Labs CBC & Chem 7: 10/12/18 07:00 10/10/18 09:25 Procedures Procedures: ECHOCARDIOGRAM CONCLUSIONS Normal left ventricular size. Mild concentric left ventricular hypertrophy. The left ventricular systolic function is normal with an estimated ejection fraction in the range of 55-60%. Trace mitral valve regurgitation. Calcification of the non-coronary cusp. There is trace tricuspid valve regurgitation. Assessment and Plan (1) Disequilibrium: Code(s): R42 - Dizziness and giddiness Status: Acute (2) Confusion: Code(s): R41.0 - Disorientation, unspecified Status: Acute Plan Neurology: suspected TIA - Awaiting [employer] authorization. considering [facility] rehab ( if rejected) vs [facility] ( preferred) - PT eval daily/ OT recommendation appreciated - Send U/A ( patient reported urinary discomfort) - fall pre-cautions - continue medications as prescribed. - imaging reviewed via EMR Chronic atrial fibrillation, rate controlled -Continue metoprolol -Patient is on Coumadin for anticoagulation which is subtherapeutic secondary to be held for surgical purposes -coumadin daily - d/c heparin Recent dental surgery -complete amoxicillin ( total 5 days) DVT prevention: coumadin code: FC dispo: PENDING placement Progress Note: Quality VTE Deep Vein Thrombosis/Pulmonary Embolism Present on Admission: No
[2018-10-15 16:20] LABS: Bilirubin,Urine Negative (Negative); Clarity,Urine Clear (Clear); Color,Urine Yellow (Yellw/Straw); Glucose,Urine (UA) Negative (Negative); Leukocyte Esterase,Urine Negative (Negative); Nitrite,Urine Negative (Negative); PH,Urine 5.5 (5.0-8.5)
[2018-10-15] MEDS: amLODIPine 5 MG Tablet PO SCH (17:52)
[2018-10-15] MEDS: traZODone 50 MG Tablet PO SCH (20:22)
[2018-10-16 06:08] LABS: Hemoglobin 13.2 gm/dL (13.0-17.0); Mean Corpuscular HGB Conc 33.1 % (32.0-36.0); Mean Corpuscular Hemoglobin 28.2 pg (27.0-34.0); Mean Corpuscular Volume 85.3 fL (80.0-100.0); Mean Platelet Volume 7.3 fL (7.0-11.0); Platelet Count 141 th/mm3 (150-450); Red Blood Count 4.69 mil/mm3 (4.50-5.90); Red Cell Distribution Width 15.6 % (11.6-17.2); White Blood Count 7.3 th/mm3 (4.0-11.0)
[2018-10-16 06:19] LABS: INR 2.8 Ratio; Prothrombin Time 28.1 sec (9.8-11.6)
[2018-10-16 06:24] LABS: Potassium 4.4 meq/L (3.5-5.1)
[2018-10-16 06:26] LABS: Calcium 8.8 mg/dL (8.5-10.1)
[2018-10-16 06:27] LABS: Carbon Dioxide 31.3 meq/L (21.0-32.0)
[2018-10-16] MEDS: amLODIPine 5 MG Tablet PO SCH (08:06)
[2018-10-16] MEDS ORDERED: levoFLOXacin 750 MG Tablet PO SCH (11:00)
== END 2018-10-16 09:34 ==
LOC: PHED 19:05 → PHEDA 21:22 → PH3 22:50
PROVIDERS: ADMIT Internal Medicine; ATTEND Internal Medicine
DX: I10 Essential (primary) hypertension; I65.02 Occlusion and stenosis of left vertebral artery; F03.90 Unspecified dementia, unspecified severity, without behavioral disturbance, psychotic disturbance, mood disturbance, and anxiety; E53.8 Deficiency of other specified B group vitamins; Z79.01 Long term (current) use of anticoagulants; Z96.642 Presence of left artificial hip joint; R41.0 Disorientation, unspecified; G45.9 Transient cerebral ischemic attack, unspecified; I48.2 Chronic atrial fibrillation; E78.5 Hyperlipidemia, unspecified; Z87.891 Personal history of nicotine dependence